=== PATIENT | female | born 1995 | race Caucasian/White ===

== ENCOUNTER → 2017-08-16 | Outpatient (REF) | payer OTHER, BC | LOC: M LAB REF 18:40 | DX: Z12.4 Encounter for screening for malignant neoplasm of cervix (principal) ==

== ENCOUNTER 2018-02-06 17:18 | Inpatient (IN) | payer BC, OTHER ==
[2018-02-06 18:58] LABS: HEMATOCRIT 41.9 % (36.0-47.0); HEMOGLOBIN 14.2 g/dl (12.0-15.5); MEAN CORPUSCULAR HEMOGLOBIN 29.7 pg (27.0-33.0); MEAN CORPUSCULAR HGB CONC 33.9 g/dl (32.0-36.5); MEAN CORPUSCULAR VOLUME 87.7 fl (80.0-96.0); PLATELET COUNT, AUTOMATED 365 10^3/uL (150-450); RED BLOOD COUNT 4.78 10^6/uL (4.00-5.40); RED CELL DISTRIBUTION WIDTH 11.9 % (11.5-14.5); WHITE BLOOD COUNT 8.2 10^3/uL (4.0-10.0)
[2018-02-06 19:21] LABS: CONTROL LINE HCG INT CTR LINE PRESENT; HCG, SERUM QUALITATIVE NEGATIVE (NEGATIVE)
[2018-02-06 19:31] LABS: AMPHETAMINES LEVEL URINE NEGATIVE (NEGATIVE); BARBITURATES URINE NEGATIVE (NEGATIVE); BENZODIAZEPINES URINE NEGATIVE (NEGATIVE); CANNABINOIDS URINE POSITIVE (NEGATIVE); COCAINE METABOLITE URINE NEGATIVE (NEGATIVE); METHADONE URINE NEGATIVE (NEGATIVE); OPIATES URINE NEGATIVE (NEGATIVE); PHENCYCLIDINE URINE NEGATIVE (NEGATIVE)
[2018-02-06 19:32] LABS: ACETAMINOPHEN LEVEL < 2.0 UG/ML (10.0-30.0); ALBUMIN 4.4 GM/DL (3.2-5.2); ALBUMIN/GLOBULIN RATIO 1.38 (1.00-1.93); ALKALINE PHOSPHATASE 41 U/L (45-117); ALT/SGPT 12 U/L (12-78); ANION GAP 8 MEQ/L (8-16); AST/SGOT 8 U/L (7-37); BILIRUBIN,DIRECT 0.2 MG/DL (0.0-0.2); BILIRUBIN,TOTAL 1.1 MG/DL (0.2-1.0); BLOOD UREA NITROGEN 12 MG/DL (7-18); CALCIUM LEVEL 9.4 MG/DL (8.5-10.1); CARBON DIOXIDE LEVEL 27 MEQ/L (21-32); CHLORIDE LEVEL 106 MEQ/L (98-107); CREATININE FOR GFR 0.87 MG/DL (0.55-1.30); ETHYL ALCOHOL (ETHANOL) 0.003 % (0.000-0.010); GLOMERULAR FILTRATION RATE > 60.0 (>60); GLUCOSE, FASTING 96 MG/DL (70-100); POTASSIUM SERUM 3.9 MEQ/L (3.5-5.1); SALICYLATE LEVEL < 1.7 MG/DL (5.0-30.0); SODIUM LEVEL 141 MEQ/L (136-145); TOTAL PROTEIN 7.6 GM/DL (6.4-8.2)
[2018-02-07] MEDS ORDERED: MOM 30ML SUSPENSION UDC PO (14:00)
[2018-02-07] MEDS ORDERED: traZODone 50 MG TAB PO (14:00)
[2018-02-07] MEDS ORDERED: MAALOX 30 ML SUSP *UDC PO (14:00)
[2018-02-07] MEDS ORDERED: ACETAMINOPHEN TAB 650MG DOSE (2X325MG) PO (14:00)
[2018-02-08] MEDS: ESCITALOPRAM OXALATE 5MG TABLET (LEXAPRO) PO (12:30)
[2018-02-08 12:45] LABS: KETONE, URINE AUTO RFX TRACE mg/dL (NEGATIVE); MUCUS, URINE RFX LARGE (NEGATIVE); NITRITE, URINE AUTO RFX NEGATIVE (NEGATIVE); RBC, URINE AUTO RFX 4 /HPF (0-3); SPECIFIC GRAVITY UR AUTO RFX 1.027 (1.002-1.035); SQUAM EPITHELIAL CELL UR AURFX 4 /HPF (0-6); WBC, URINE AUTO RFX 3 /HPF (0-3)
[2018-02-08 12:46] LABS: LEUKOCYTE ESTERASE UR AUTO RFX TRACE (NEGATIVE)
[2018-02-08] MEDS ORDERED: ONDANSETRON 4 MG TAB (S0181) PO (14:45)
[2018-02-08] MEDS: hydrOXYzine 25 MG TAB PO (15:22)
[2018-02-08] MEDS: QUEtiapine FUMARATE 25 MG TAB PO (21:00)
[2018-02-09] MEDS: hydrOXYzine 25 MG TAB PO (08:01)
[2018-02-09] MEDS: ESCITALOPRAM OXALATE 5MG TABLET (LEXAPRO) PO ×2 (09:00→17:52)
[2018-02-09] MEDS: PILL CRUSHER/CUTTER 1 EACH XX (17:52)
[2018-02-10] MEDS: hydrOXYzine 25 MG TAB PO ×2 (07:04→20:28)
[2018-02-10] MEDS: ESCITALOPRAM OXALATE 5MG TABLET (LEXAPRO) PO (18:04)
[2018-02-11] MEDS: hydrOXYzine 25 MG TAB PO (08:47)
== END 2018-02-11 12:45 | disposition home or self-care (01) | DRG 754 ==
LOC: M ED INP 02-07 13:53 → M ED 17:18 → M PSY 02-07 15:50
PROVIDERS: Psychiatry & Neurology Psychiatry
DX: F32.9 Major depressive disorder, single episode, unspecified (principal); F31.9 Bipolar disorder, unspecified; F41.1 Generalized anxiety disorder; F42.9 Obsessive-compulsive disorder, unspecified

== ENCOUNTER → 2018-06-09 | Outpatient (CLI) | payer BC, OTHER ==
[~2018-06-09] MED LIST: HYDR-3363 PO; LEXA5TAB13 PO
[2018-06-09 09:48] LABS: HCG, SERUM QUANTITATIVE < 1.0 MIU/ML
[2018-06-09 09:54] LABS: ESTRADIOL 53.8 PG/ML; FOLLICLE STIMULATING HORMONE 7.2 mIU/mL
--- NOTE | 2018-06-09 09:59 | REP ---
Transvaginal pelvic sonography: History: Infertility study. Findings: Uterine dimensions are normal at 8.2 x 4.4 x 6.1 cm. Endometrial stripe is 0.6 cm thick and centrally placed. No focal uterine mass is seen. There is a trace of fluid in the cul-de-sac. A normal right ovary seen measuring 3.2 x 1.7 x 1.6 cm. There are no follicles in the right ovary measuring greater than a centimeter. There are 14 follicles ranging in size from 0.2-0.9 cm. The left ovary measures 1.1 x 0.8 x 1.2 cm. There are no follicles measuring greater than a centimeter in the left ovary. There are 12 follicles ranging in size from 0.1-0.3 cm. Impression: Ovarian follicle study as above. Electronically Signed by Chase Powell MD 06/09/2018 09:50 A
== END ==
LOC: M LAB 08:43
PROVIDERS: ATTEND Obstetrics & Gynecology Reproductive Endocrinology
DX: Z87.42 Personal history of other diseases of the female genital tract (principal)

== ENCOUNTER → 2018-06-20 | Outpatient (CLI) | payer BC, OTHER ==
--- NOTE | 2018-06-20 08:47 | REP ---
Transvaginal pelvic sonography: History: Ovarian follicle study. Findings: Transvaginal pelvic sonography demonstrates a normal size uterus with dimensions of 9.0 x 4.0 x 6.6 cm per endometrial stripe is 1.2 cm thick. No free fluid is seen. No focal uterine mass is seen Overall dimensions of the right ovary today are 3.6 x 1.6 x 1.9 cm. There are no follicles measuring greater than a centimeter in the right ovary. There are 14 follicles in the right ovary ranging in size from 0.14-0.82 cm. The left ovary has overall dimensions of 2.0 x 1.6 x 1.6 cm. It contains no follicles measuring over a centimeter. There are 12 follicles ranging in size from 0.16 cm to 0.48 cm. Impression: Ovarian follicle study as above. Electronically Signed by Chase Powell MD 06/20/2018 08:38 A
[2018-06-20 09:20] LABS: ESTRADIOL 806.3 PG/ML
[2018-06-20 15:38] LABS: PROGESTERONE 1.34 NG/ML
== END ==
LOC: M RAD 07:36
PROVIDERS: ATTEND Obstetrics & Gynecology Reproductive Endocrinology
DX: N97.9 Female infertility, unspecified (principal)

== ENCOUNTER → 2018-07-06 | Outpatient (CLI) | payer BC, OTHER | LOC: M LAB 07:34 | PROVIDERS: ATTEND Obstetrics & Gynecology Reproductive Endocrinology | DX: Z32.00 Encounter for pregnancy test, result unknown (principal); Z3A.00 Weeks of gestation of pregnancy not specified ==

== ENCOUNTER → 2018-07-11 | Outpatient (CLI) | payer BC, OTHER ==
[2018-07-11 13:41] LABS: HCG, SERUM QUANTITATIVE < 1.0 MIU/ML
[2018-07-11 13:46] LABS: ESTRADIOL 61.3 PG/ML; FOLLICLE STIMULATING HORMONE 7.7 mIU/mL
--- NOTE | 2018-07-11 14:09 | REP ---
Transvaginal pelvic sonography: History: Infertility study. Findings: Uterine I mentions are normal at 10.5 x 4.3 x 6.3 cm. Endometrial stripe is 0.5 cm thick. No focal uterine mass is seen. Endometrium appears somewhat thicker in the cervix. No free fluid is seen. The right ovary measures 2.6 x 1.5 x 1.6 cm. There are no follicles over a centimeter in the right ovary. There are three follicles ranging in size and 0.3-0.8 cm in the right ovary. The left ovary has dimensions of 1.5 x 0.9 x 1.4 cm. There are no follicles in the left ovary measuring over a centimeter. There are three follicles ranging in size from 0.2-0.4 cm in the left ovary. Impression: Normal pelvic sonography. Ovarian follicles as above. Electronically Signed by Chase Powell MD 07/11/2018 02:00 P
== END ==
LOC: M RAD 12:46 → M LAB 12:46
PROVIDERS: ATTEND Obstetrics & Gynecology Reproductive Endocrinology
DX: N97.9 Female infertility, unspecified (principal)

== ENCOUNTER → 2018-07-16 | Outpatient (REF) | payer BC, OTHER | LOC: M LAB REF 19:12 | PROVIDERS: ATTEND Physician Assistant Medical | DX: N39.0 Urinary tract infection, site not specified (principal) ==

== ENCOUNTER → 2018-07-18 | Outpatient (CLI) | payer BC, OTHER ==
--- NOTE | 2018-07-18 09:47 | REP ---
TRANSVAGINAL PELVIC ULTRASOUND FOLLICLE STUDY: Transvaginal pelvic ultrasound was performed. The uterus measures 9.1 x 4.5 x 6.5 cm. Trace free fluid is seen in the cul-de sac. Nabothian cysts are seen in the region of the cervix. Right ovary measure 3.0 x 1.6 x 2.3 cm and left ovary 2.1 x 1.5 x 1.9 cm, with no torsion, blood flow is seen each ovary with duplex Doppler evaluation. In the right ovary there are 7 subcentimeter follicles and in the left ovary there are four subcentimeter follicles. No dominant follicles are seen in either ovary greater than 1 cm in diameter. Electronically Signed by Bismark Power MD 07/18/2018 06:40 P
[2018-07-18 10:08] LABS: ESTRADIOL 719.9 PG/ML; LUTEINIZING HORMONE 14.6 mIU/mL
[2018-07-18 14:03] LABS: PROGESTERONE 0.34 NG/ML
== END ==
LOC: M RAD 07:59
PROVIDERS: ATTEND Obstetrics & Gynecology Reproductive Endocrinology
DX: N97.9 Female infertility, unspecified (principal)

== ENCOUNTER → 2018-07-20 | Outpatient (CLI) | payer BC, OTHER ==
[2018-07-20 09:26] LABS: ESTRADIOL 871.2 PG/ML; LUTEINIZING HORMONE 9.9 mIU/mL; PROGESTERONE 0.28 NG/ML
--- NOTE | 2018-07-20 11:52 | REP ---
TRANSVAGINAL PELVIC ULTRASOUND, FOLLICLE STUDY: Transvaginal pelvic ultrasound performed. Uterus measures 9.8 x 4.8 x 6.9 cm. Endometrial thickness is 15 mm with a trilaminar appearance. There is a tiny amount of fluid in the cervix. Right ovary measures 3.4 x 1.5 x 1.8 cm. A dominant follicle measures 10 x 7 mm. Several other follicles are less than 1 cm in diameter. Left ovary measures 4.9 x 2.5 x 3.6 cm. Four dominant follicles are visualized over 1 cm in diameter, the two largest measure 22 x 17 and 29 x 19 mm. Several other subcentimeter follicles are seen in the left ovary. Electronically Signed by Bismark Power MD 07/21/2018 10:51 A
== END ==
LOC: M RAD 07:27
PROVIDERS: ATTEND Obstetrics & Gynecology Reproductive Endocrinology
DX: N97.9 Female infertility, unspecified (principal)

== ENCOUNTER → 2018-08-05 | Outpatient (CLI) | payer BC, OTHER | LOC: M LAB 07:18 | PROVIDERS: ATTEND Obstetrics & Gynecology Reproductive Endocrinology | DX: Z32.00 Encounter for pregnancy test, result unknown (principal); Z3A.00 Weeks of gestation of pregnancy not specified ==

== ENCOUNTER → 2018-08-08 | Outpatient (CLI) | payer BC, OTHER ==
--- NOTE | 2018-08-08 10:06 | REP ---
TRANSVAGINAL PELVIC ULTRASOUND FOLLICLE STUDY: Real-time sonographic evaluation of the pelvis performed using transvaginal technique. Uterus measures 9.6 x 4.3 x 6.2 cm. Endometrial thickness is 8 mm. There is no endometrial fluid collection. Left ovarian cyst measures 4.0 x 2.4 x 2.6 cm. Left ovary measures 7.0 x 3.0 x 3.4 cm. Multiple subcentimeter follicles are also seen in the left ovary. Right ovary measures 1.9 x 1.4 x 1.4 cm with multiple subcentimeter follicles. Electronically Signed by Bismark Power MD 08/09/2018 11:28 A
[2018-08-08 10:39] LABS: HCG, SERUM QUANTITATIVE < 1.0 MIU/ML
[2018-08-08 10:48] LABS: ESTRADIOL 59.9 PG/ML; FOLLICLE STIMULATING HORMONE 6.3 mIU/mL
== END ==
LOC: M RAD 09:08
PROVIDERS: ATTEND Obstetrics & Gynecology Reproductive Endocrinology
DX: N97.9 Female infertility, unspecified (principal)

== ENCOUNTER → 2018-09-09 | Outpatient (CLI) | payer BC, OTHER ==
--- NOTE | 2018-09-09 09:35 | REP ---
TRANSVAGINAL PELVIC ULTRASOUND FOLLICLE STUDY: Real-time sonographic evaluation of the pelvis performed utilizing transvaginal technique. The uterus measures 8.0 x 4.2 x 6.0 cm. Endometrial thickness is 6 mm. Trace free fluid is seen in the cul-de-sac likely physiologic in nature. Transabdominal scanning also was performed as the left ovary could not be visualized with a transvaginal probe as it is superiorly located in the pelvis. Right ovary measures 2.9 x 1.5 x 2.1 cm with multiple subcentimeter follicles measuring up to 6 mm. Left ovary measures 2.6 x 1.4 x 1.8 cm. There are several subcentimeter follicles measuring up to 7 mm. No dominant follicle is seen in either ovary measuring 10 mm or greater. Electronically Signed by Bismark Power MD 09/10/2018 10:41 A
[2018-09-09 10:10] LABS: HCG, SERUM QUANTITATIVE < 1.0 MIU/ML
[2018-09-09 10:54] LABS: ESTRADIOL 36.1 PG/ML
[2018-09-09 10:55] LABS: FOLLICLE STIMULATING HORMONE 6.8 mIU/mL
== END ==
LOC: M RAD 08:20
PROVIDERS: ATTEND Obstetrics & Gynecology Reproductive Endocrinology
DX: N97.9 Female infertility, unspecified (principal)

== ENCOUNTER → 2018-10-06 | Outpatient (CLI) | payer BC, OTHER | LOC: M LAB 07:30 | PROVIDERS: ATTEND Obstetrics & Gynecology Reproductive Endocrinology | DX: Z32.00 Encounter for pregnancy test, result unknown (principal) ==

== ENCOUNTER → 2018-11-07 | Outpatient (CLI) | payer BC, OTHER ==
--- NOTE | 2018-11-07 12:19 | REP ---
Transvaginal pelvic sonography: Follicle exam: Infertility. Findings: Uterine dimensions are 9.8 x 4.7 x 6.9 cm. Endometrial echo 0.3 cm thick. No focal uterine mass is seen. No free fluid is noted. The left ovary is only seen transabdominally. Its dimensions are 3.5 x 1.1 x 1.9 cm. There are no follicles in the left ovary measuring more than a centimeter. There are two follicles visible in the left ovary ranging in size from 0.7-0.8 cm.. Ovarian volume is calculated at 3.8 ml. The right ovary measures 3.8 x 1.7 x 2.3 cm. Calculated volume 7.8 ml. There are no follicles over a centimeter in the right ovary. There are four follicles ranging in size from 0.3-0.7 cm. Doppler flow is normal both ovaries. Resistive indices are 0.53 and 0.60 on the right and left respectively. Impression: Ovarian follicle study as above. No abnormality noted. Electronically Signed by Chase Powell MD 11/07/2018 08:05 A
== END ==
LOC: M RAD 07:17
PROVIDERS: ATTEND Obstetrics & Gynecology Reproductive Endocrinology
DX: N97.9 Female infertility, unspecified (principal)

== ENCOUNTER → 2018-11-09 | Outpatient (CLI) | payer BC, OTHER ==
--- NOTE | 2018-11-09 08:49 | REP ---
TRANSVAGINAL PELVIC ULTRASOUND, FOLLICLE STUDY: Real-time sonographic evaluation of the pelvis performed utilizing transvaginal probe. The size of the uterus is 9.3 x 5.0 x 7.0 cm. Endometrial thickness is 7 mm. The right ovary measures 4.3 x 2.4 x 2.9 cm. Two dominant follicles are seen measuring 11 x 9 and 11 x 8 mm. Multiple other subcentimeter follicles are seen. Left ovary measures 2.9 x 1.7 x 2.3 cm. Two dominant follicles are seen measuring 19 x 10 mm and 11 x 10 mm. Multiple other subcentimeter follicles are seen in the left ovary. Electronically Signed by Bismark Power MD 11/10/2018 08:02 A
== END ==
LOC: M RAD 07:35
PROVIDERS: ATTEND Obstetrics & Gynecology Reproductive Endocrinology
DX: N97.9 Female infertility, unspecified (principal)

== ENCOUNTER → 2018-11-11 | Outpatient (CLI) | payer BC, OTHER ==
--- NOTE | 2018-11-11 07:58 | REP ---
Pelvic sonography: History: Ovarian follicle exam. Diagnosis N 97.9. Findings: Uterine dimensions are 9.5 x 4.9 x 6.2 cm. Endometrial stripe is 1.2 cm thick. No focal uterine mass is seen. No free fluid is noted. The right ovaries dimensions today are 4.8 x 2.5 x 2.5 cm. There are six follicles in the right ovary greater than a centimeter in diameter measured as follows: 1.0 x 0.8, 1.3 x 1.0, 1.1 x 0.9, 1.0 x 0.8, 1.4 x 0.7, and 1.4 x 1.0 cm. In addition, the right ovary contains nine follicles measuring between 0.5 and 0.9 cm. The left ovaries overall dimensions are 7.8 x 2.0 x 2.4 cm. It is high in the pelvis and only visualized transabdominally. There are five follicles measuring over a centimeter in the left ovary as follows: 1.3 x 0.8, 1.5 x 1.1, 1.2 x 0.8, 1.6 x 1.1, and 1.5 x 1.0 cm. In addition, the left ovary contains five follicles measuring between 0.4 and 0.8 cm Impression: Ovarian follicle study as above. Electronically Signed by Chase Powell MD 11/11/2018 07:50 A
== END ==
LOC: M RAD 06:41
PROVIDERS: ATTEND Obstetrics & Gynecology Reproductive Endocrinology
DX: N97.9 Female infertility, unspecified (principal)

== ENCOUNTER → 2018-11-16 | Outpatient (CLI) | payer BC, OTHER | LOC: M LAB 07:18 | PROVIDERS: ATTEND Obstetrics & Gynecology Reproductive Endocrinology | DX: N97.9 Female infertility, unspecified (principal) ==

== ENCOUNTER → 2018-11-24 | Outpatient (CLI) | payer BC, OTHER | LOC: M LAB 07:25 | PROVIDERS: ATTEND Obstetrics & Gynecology Reproductive Endocrinology | DX: Z32.00 Encounter for pregnancy test, result unknown (principal) ==

== ENCOUNTER → 2018-12-02 | Outpatient (CLI) | payer BC, OTHER | LOC: M LAB 07:32 | PROVIDERS: ATTEND Obstetrics & Gynecology Reproductive Endocrinology | DX: Z32.00 Encounter for pregnancy test, result unknown (principal) ==

== ENCOUNTER → 2018-12-05 | Outpatient (CLI) | payer BC, OTHER ==
[2018-12-05 08:20] LABS: THYROID STIMULATING HORMONE 2.55 uIU/ML (0.358-3.740)
== END ==
LOC: M LAB 07:18
PROVIDERS: ATTEND Obstetrics & Gynecology Reproductive Endocrinology
DX: Z32.00 Encounter for pregnancy test, result unknown (principal)

== ENCOUNTER → 2018-12-07 | Outpatient (CLI) | payer BC, OTHER ==
[2018-12-07 07:35] LABS: HEMATOCRIT 36.9 % (36.0-47.0); HEMOGLOBIN 12.6 g/dl (12.0-15.5); MEAN CORPUSCULAR HEMOGLOBIN 29.8 pg (27.0-33.0); MEAN CORPUSCULAR HGB CONC 34.1 g/dl (32.0-36.5); MEAN CORPUSCULAR VOLUME 87.2 fl (80.0-96.0); PLATELET COUNT, AUTOMATED 328 10^3/uL (150-450); RED BLOOD COUNT 4.23 10^6/uL (4.00-5.40); WHITE BLOOD COUNT 5.3 10^3/uL (4.0-10.0)
[2018-12-07 08:01] LABS: ALBUMIN 3.7 GM/DL (3.2-5.2); ALT/SGPT 15 U/L (12-78); BILIRUBIN,TOTAL 0.7 MG/DL (0.2-1.0); BLOOD UREA NITROGEN 11 MG/DL (7-18); CALCIUM LEVEL 8.9 MG/DL (8.5-10.1); CARBON DIOXIDE LEVEL 26 MEQ/L (21-32); CHLORIDE LEVEL 105 MEQ/L (98-107); CREATININE FOR GFR 0.77 MG/DL (0.55-1.30); GLOMERULAR FILTRATION RATE > 60.0 (>60); GLUCOSE, FASTING 97 MG/DL (70-100); HCG, SERUM QUANTITATIVE 126 MIU/ML; POTASSIUM SERUM 3.8 MEQ/L (3.5-5.1); SODIUM LEVEL 139 MEQ/L (136-145); TOTAL PROTEIN 7.2 GM/DL (6.4-8.2)
== END ==
LOC: M LAB 07:16
PROVIDERS: ATTEND Obstetrics & Gynecology Reproductive Endocrinology
DX: Z32.00 Encounter for pregnancy test, result unknown (principal)

== ENCOUNTER → 2018-12-09 | Outpatient (CLI) | payer BC, OTHER | LOC: M LAB 07:38 | PROVIDERS: ATTEND Obstetrics & Gynecology Reproductive Endocrinology | DX: N97.9 Female infertility, unspecified (principal) ==

== ENCOUNTER → 2018-12-12 | Outpatient (CLI) | payer BC, OTHER | LOC: M LAB 08:13 | PROVIDERS: ATTEND Obstetrics & Gynecology Reproductive Endocrinology | DX: N97.9 Female infertility, unspecified (principal) ==

== ENCOUNTER → 2018-12-16 | Outpatient (CLI) | payer BC, OTHER | LOC: M LAB 07:43 | PROVIDERS: ATTEND Obstetrics & Gynecology Reproductive Endocrinology | DX: N97.9 Female infertility, unspecified (principal) ==

== ENCOUNTER → 2019-02-09 | Outpatient (CLI) | payer OTHER | LOC: M LAB 07:34 | PROVIDERS: ATTEND Obstetrics & Gynecology Reproductive Endocrinology | DX: N97.9 Female infertility, unspecified (principal) ==

== ENCOUNTER → 2019-03-09 | Outpatient (CLI) | payer OTHER ==
[2019-03-09 11:28] LABS: ESTRADIOL 20.6 PG/ML; PROGESTERONE 0.32 NG/ML
== END ==
LOC: M LAB 07:47
PROVIDERS: ATTEND Obstetrics & Gynecology Reproductive Endocrinology
DX: N97.9 Female infertility, unspecified (principal)

== ENCOUNTER → 2019-04-10 | Outpatient (CLI) | payer OTHER | LOC: M LAB 07:28 | PROVIDERS: ATTEND Obstetrics & Gynecology Reproductive Endocrinology | DX: Z32.00 Encounter for pregnancy test, result unknown (principal) ==

== ENCOUNTER → 2019-05-05 | Outpatient (CLI) | payer OTHER ==
[2019-05-05 09:57] LABS: BASO % 0.8 % (0.0-1.0); EOS # 0.1 10^3/uL (0.0-0.5); EOS % 2.3 % (0.0-3.0); HEMATOCRIT 37.7 % (36.0-47.0); HEMOGLOBIN 12.6 g/dl (12.0-15.5); MEAN CORPUSCULAR HEMOGLOBIN 29.2 pg (27.0-33.0); MEAN CORPUSCULAR HGB CONC 33.4 g/dl (32.0-36.5); MEAN CORPUSCULAR VOLUME 87.3 fl (80.0-96.0); MONO # 0.4 10^3/uL (0.0-0.8); MONO % 8.5 % (0.0-5.0); NEUTROPHILS # 2.3 10^3/uL (1.5-8.5); NEUTROPHILS % 47.2 % (36.0-66.0); PLATELET COUNT, AUTOMATED 314 10^3/uL (150-450); RED BLOOD COUNT 4.32 10^6/uL (4.00-5.40); WHITE BLOOD COUNT 4.9 10^3/uL (4.0-10.0)
[2019-05-05 10:26] LABS: ALBUMIN 3.9 GM/DL (3.2-5.2); ALT/SGPT 30 U/L (12-78); BILIRUBIN,TOTAL 0.4 MG/DL (0.2-1.0); BLOOD UREA NITROGEN 10 MG/DL (7-18); CALCIUM LEVEL 9.2 MG/DL (8.5-10.1); CARBON DIOXIDE LEVEL 29 MEQ/L (21-32); CHLORIDE LEVEL 107 MEQ/L (98-107); CREATININE FOR GFR 0.69 MG/DL (0.55-1.30); FERRITIN 23 NG/ML (8-252); GLOMERULAR FILTRATION RATE > 60.0 (>60); GLUCOSE, FASTING 80 MG/DL (70-100); IRON (FE) 59 UG/DL (50-170); MAGNESIUM LEVEL 2.3 MG/DL (1.8-2.4); PERCENT SATURATION 16.3 % (13.2-45.0); PHOSPHORUS LEVEL 3.4 MG/DL (2.5-4.9); POTASSIUM SERUM 3.9 MEQ/L (3.5-5.1); SODIUM LEVEL 140 MEQ/L (136-145); TOTAL IRON BINDING CAPACITY 363 UG/DL (250-450); TOTAL PROTEIN 7.2 GM/DL (6.4-8.2)
[2019-05-05 10:40] LABS: THYROGLOBULIN ANTIBODY 25.7 U/ML (<60.0); THYROID PEROXIDASE ANTIBODY < 28.0 U/ML (<60.0); TOTAL 25(OH) VITAMIN D 27.3 NG/ML (30.0-100.0)
[2019-05-05 10:41] LABS: VITAMIN B12 LEVEL 478 PG/ML (247-911)
[2019-05-05 11:01] LABS: FOLATE > 24.0 NG/ML (>5.4)
[2019-05-25 15:04] LABS: VITAMIN B2 (RIBOFLAVIN) 195 ug/L
[2019-05-25 15:09] LABS: G6PD3 4.32 x10E6/uL
[2019-05-25 15:11] LABS: Lyme Disease IgG/IgM Antibodie 0.94 High ISR
[2019-05-25 15:15] LABS: Lyme Disease IgG Ab 93 kDa Ban Absent
[2019-05-25 15:16] LABS: Lyme Disease IgG Ab 18 kDa Ban Absent; Lyme Disease IgG Ab 23 kDa Ban Absent; Lyme Disease IgG Ab 28 kDa Ban Absent; Lyme Disease IgG Ab 30 kDa Ban Absent; Lyme Disease IgG Ab 39 kDa Ban Absent; Lyme Disease IgG Ab 41 kDa Ban Absent; Lyme Disease IgG Ab 45 kDa Ban Absent; Lyme Disease IgG Ab 58 kDa Ban Absent; Lyme Disease IgG Ab 66 kDa Ban Absent
[2019-05-25 15:17] LABS: Lyme Disease IgG West Blot Int Negative; Lyme Disease IgM Ab 41 kDa Ban Absent
[2019-05-25 15:18] LABS: Lyme Disease IgM Ab 23 kDa Ban Present Abnormal; Lyme Disease IgM Ab 39 kDa Ban Absent
[2019-05-25 15:27] LABS: Lyme Disease IgM West Blot Int Negative
[2019-05-25 15:33] LABS: Lyme Disease IgM Ab Quantitati <0.80 index
[2019-05-25 15:35] LABS: B. HENSELAE IgM (CAT SCRATCH) Negative; B. QUINTANA IgM (CAT SCRATCH) Negative
[2019-05-25 15:36] LABS: B. QUINTANA IgG (CAT SCRATCH) Negative
[2019-05-25 15:37] LABS: B. HENSELAE IgG (CAT SCRATCH) Negative
[2019-05-25 15:38] LABS: EBV VIRAL CAPSID AG IgM 102.0 High
[2019-05-25 15:39] LABS: EBV VIRAL CAPSID AG IgG 98.4 High
[2019-05-25 15:40] LABS: EBV AB TO NUCLEAR ANTIGEN 495.0 High
[2019-05-25 15:47] LABS: MYCOPLASMA PNEUMONIAE IgG 180 High
[2019-05-25 15:49] LABS: MYCOPLASMA PNEUMONIAE IgM <770
[2019-05-25 15:50] LABS: VITAMIN B6,PYRIDOXAL PHOSPHATE 8.1 ug/L
[2019-05-25 15:52] LABS: E CHAFFEENSIS IgG TITER Negative
[2019-05-25 15:53] LABS: E CHAFFEENSIS IgM TITER Negative; HUMAN GRANULCYTIC EHRLIC IgG Negative
[2019-05-25 15:54] LABS: HUMAN GRANULCYTIC EHRLIC IgM Negative
[2019-05-25 15:56] LABS: HERPES HUMAN VIRUS #6 IgG HVG 2.70 High
[2019-05-25 15:57] LABS: HERPES HUMAN VIRUS #6 IgM HVG <1:10
[2019-05-25 15:59] LABS: TOXOPLASMA IgG ABY <3.0
[2019-05-25 16:03] LABS: HSV TYPE I IgG SPECIFIC 1.61 High; HSV TYPE II IgG SPECIFIC <0.91
[2019-05-25 16:07] LABS: BABESIA MICROTI PCR Negative
[2019-05-25 16:08] LABS: WEST NILE VIRUS ANTIBODY IgM Negative (NEGATIVE)
[2019-05-25 16:09] LABS: WEST NILE VIRUS ANTIBODY IgG Negative (NEGATIVE)
[2019-05-25 16:10] LABS: HSV TYPE I IgM AB <1:10
[2019-05-25 16:11] LABS: HSV TYPE II IgM ABY <1:10
[2019-05-25 16:12] LABS: CYTOMEGALOVIRUS IgG ANTIBODY <0.60
[2019-05-25 16:14] LABS: CYTOMEGALOVIRUS IgM ANTIBODY <30.0
[2019-05-25 16:16] LABS: COXSACKIE TYPE A-7 IgM Negative
[2019-05-25 16:17] LABS: COXSACKIE TYPE A-16 IgM Negative; COXSACKIE TYPE A-24 IgM Negative; COXSACKIE TYPE A-9 IgM Negative
[2019-05-25 16:18] LABS: COXSACKIE TYPE B1 Negative; COXSACKIE TYPE B2 Negative; COXSACKIE TYPE B3 Negative; COXSACKIE TYPE B4 Negative; COXSACKIE TYPE B5 Negative; COXSACKIE TYPE B6 Negative
[2019-05-25 16:21] LABS: RMSFIGG1 Negative
[2019-05-25 16:22] LABS: ROCKY MTN SPOTTED FEVER IgM 1.17 High
[2019-05-25 16:23] LABS: CHLAMYDIA PNEUMONIAE IgG <1:16
[2019-05-25 16:24] LABS: CHLAMYDIA PNEUMONIAE IgM <1:10
[2019-05-25 16:27] LABS: NICOTINAMIDE 28.6 ng/mL
[2019-05-25 16:28] LABS: NICOTINIC ACID <5.0 ng/mL
== END ==
LOC: M LAB 07:53
PROVIDERS: ATTEND Physician Assistant
DX: E55.9 Vitamin D deficiency, unspecified (principal); E03.9 Hypothyroidism, unspecified; D50.8 Other iron deficiency anemias; R68.89 Other general symptoms and signs; I10 Essential (primary) hypertension; D55.0 Anemia due to glucose-6-phosphate dehydrogenase [G6PD] deficiency; Z11.59 Encounter for screening for other viral diseases

== ENCOUNTER → 2019-07-17 | Outpatient (CLI) | payer OTHER ==
[2019-07-17 13:52] LABS: BASO % 0.9 % (0.0-1.0); EOS # 0.1 10^3/uL (0.0-0.5); EOS % 2.7 % (0.0-3.0); HEMATOCRIT 36.1 % (36.0-47.0); HEMOGLOBIN 12.2 g/dl (12.0-15.5); LYMPH # 2.1 10^3/uL (1.5-5.0); LYMPH % 48.1 % (24.0-44.0); MEAN CORPUSCULAR HGB CONC 33.8 g/dl (32.0-36.5); MEAN CORPUSCULAR VOLUME 88.7 fl (80.0-96.0); MONO # 0.5 10^3/uL (0.0-0.8); MONO % 10.6 % (0.0-5.0); NEUTROPHILS # 1.7 10^3/uL (1.5-8.5); NEUTROPHILS % 37.5 % (36.0-66.0); PLATELET COUNT, AUTOMATED 251 10^3/uL (150-450); RED BLOOD COUNT 4.07 10^6/uL (4.00-5.40); WHITE BLOOD COUNT 4.5 10^3/uL (4.0-10.0)
[2019-07-17 14:27] LABS: ALBUMIN 3.5 GM/DL (3.2-5.2); ALT/SGPT 29 U/L (12-78); BILIRUBIN,TOTAL 0.3 MG/DL (0.2-1.0); BLOOD UREA NITROGEN 4 MG/DL (7-18); CALCIUM LEVEL 8.6 MG/DL (8.5-10.1); CARBON DIOXIDE LEVEL 29 MEQ/L (21-32); CHLORIDE LEVEL 106 MEQ/L (98-107); CREATININE FOR GFR 0.51 MG/DL (0.55-1.30); GLOMERULAR FILTRATION RATE > 60.0 (>60); GLUCOSE, FASTING 89 MG/DL (70-100); POTASSIUM SERUM 3.7 MEQ/L (3.5-5.1); SODIUM LEVEL 140 MEQ/L (136-145); TOTAL PROTEIN 6.9 GM/DL (6.4-8.2)
[2019-07-17 14:34] LABS: TOTAL 25(OH) VITAMIN D 62.2 NG/ML (30.0-100.0)
== END ==
LOC: M LAB 12:21
PROVIDERS: ATTEND Physician Assistant
DX: R68.89 Other general symptoms and signs (principal); E55.9 Vitamin D deficiency, unspecified

== ENCOUNTER → 2019-07-24 | Outpatient (CLI) | payer OTHER ==
[2019-07-24 12:38] LABS: ALBUMIN 3.3 GM/DL (3.2-5.2); ALT/SGPT 39 U/L (12-78); BILIRUBIN,TOTAL 0.2 MG/DL (0.2-1.0); BLOOD UREA NITROGEN 6 MG/DL (7-18); CALCIUM LEVEL 8.6 MG/DL (8.5-10.1); CARBON DIOXIDE LEVEL 29 MEQ/L (21-32); CHLORIDE LEVEL 106 MEQ/L (98-107); CREATININE FOR GFR 0.52 MG/DL (0.55-1.30); GLOMERULAR FILTRATION RATE > 60.0 (>60); GLUCOSE, FASTING 96 MG/DL (70-100); POTASSIUM SERUM 3.9 MEQ/L (3.5-5.1); SODIUM LEVEL 140 MEQ/L (136-145); TOTAL PROTEIN 6.5 GM/DL (6.4-8.2)
== END ==
LOC: M LAB 11:40
PROVIDERS: ATTEND Physician Assistant
DX: I10 Essential (primary) hypertension (principal)

== ENCOUNTER 2019-08-31 15:43 | Emergency (ER) | payer OTHER ==
[~2019-08-31] VITALS: Ht 177.8 cm; Wt 69.6 kg
[2019-08-31] MEDS ORDERED: NYST50SS PO (15:55)
[2019-08-31] MEDS ORDERED: LEXA1TAB PO (15:55)
[2019-08-31] MEDS ORDERED: [UNRECOGNIZED DRUG - OTHER] (15:55)
[2019-08-31] MEDS ORDERED: RIFA30CA PO (15:55)
[2019-08-31] MEDS ORDERED: VALA500T5 PO (15:55)
[2019-08-31] MEDS ORDERED: DOXY150C PO (15:55)
[2019-08-31] MEDS ORDERED: [UNRECOGNIZED DRUG - OTHER] (15:55)
[2019-08-31 16:27] LABS: BASO % 0.7 % (0.0-1.0); EOS # 0.1 10^3/uL (0.0-0.5); EOS % 1.1 % (0.0-3.0); HEMATOCRIT 39.7 % (36.0-47.0); HEMOGLOBIN 13.6 g/dl (12.0-15.5); LYMPH # 2.5 10^3/uL (1.5-5.0); LYMPH % 41.5 % (24.0-44.0); MEAN CORPUSCULAR HEMOGLOBIN 30.7 pg (27.0-33.0); MEAN CORPUSCULAR HGB CONC 34.3 g/dl (32.0-36.5); MEAN CORPUSCULAR VOLUME 89.6 fl (80.0-96.0); MONO # 0.5 10^3/uL (0.0-0.8); MONO % 7.9 % (0.0-5.0); NEUTROPHILS % 48.5 % (36.0-66.0); PLATELET COUNT, AUTOMATED 326 10^3/uL (150-450); RED BLOOD COUNT 4.43 10^6/uL (4.00-5.40); WHITE BLOOD COUNT 6.1 10^3/uL (4.0-10.0)
[2019-08-31] MEDS ORDERED: FAMOTIDINE IV BAG 20 MG in IV 1 EA IV ONE (16:30)
[2019-08-31] MEDS ORDERED: NS 1,000 ML IV SCH (16:30)
[2019-08-31] MEDS ORDERED: ONDANSETRON 4MG/2ML VIAL IV ONE (16:30)
[2019-08-31 16:46] LABS: ALBUMIN 4.1 GM/DL (3.2-5.2); BILIRUBIN,DIRECT 0.1 MG/DL (0.0-0.2); BILIRUBIN,TOTAL 0.4 MG/DL (0.2-1.0); TOTAL PROTEIN 7.6 GM/DL (6.4-8.2)
--- NOTE | 2019-08-31 16:56 | REP ---
Clinical: Right lower quadrant pain. Technique: Axial noncontrast images from the lung bases to the pubic symphysis with coronal and sagittal re-formations. Comparison: None. Findings: Lung bases are clear. Liver, spleen, pancreas, gallbladder, bilateral adrenal glands and kidneys are normal. The enteric system is without obstruction or acute inflammatory process. Normal terminal ileum, cecum and appendix are identified in the right lower quadrant. Pelvis demonstrates normal bladder and age-appropriate uterus/adnexa. No pelvic fluid or ascites. No free air. No adenopathy. Abdominal aorta without aneurysm or dissection. Musculoskeletal structures are intact. Impression: No acute abdominopelvic pathology appreciated. Normal right lower quadrant structures including appendix and adnexa. Electronically Signed by Fabián Livingston MD 08/31/2019 04:48 P
[2019-08-31 17:14] LABS: INR 1.13; PROTHROMBIN TIME 14.2 SECONDS (11.8-14.0)
--- NOTE | 2019-08-31 18:23 | REPVR ---
PROCEDURE INFORMATION: Exam: US Nonobstetric Pelvis; Complete Exam date and time: 08/31/2019 5:24 PM Age: 24 years old Clinical indication: Pelvic pain; Additional info: R/O ovarian cyst R TECHNIQUE: Imaging protocol: Transabdominal pelvic nonobstetric ultrasound. Complete exam. Real time ultrasound with image documentation. COMPARISON: Transvaginal NON- US 11/11/2018 6:58 AM FINDINGS: Uterus/cervix: The uterus is normal in size and echogenicity, measuring 8.4 x 5.0 x 6.8 cm. Endometrium is normal in echogenicity, measuring 12 mm in thickness. Right adnexa: Hypoechoic structure without internal color flow is seen in the right ovary measuring 2.6 x 1.9 x 1.7 cm. There may be some faint internal echoes within this, but the appearance of faint internal echoes may be artifactual. No nodularity. The right ovary measures 3.2 x 2.9 x 3.3 cm, with volume of 16 cc. Left adnexa: The left ovary is normal in size and echogenicity, measuring 1.7 x 1.0 x 1.5 cm, with volume of 1.3 cc. Free fluid: No free fluid. Bladder: Bladder is grossly unremarkable. IMPRESSION: 1. 2.6 cm right ovarian cyst. It is difficult to determine whether this is truly a simple cyst as a dominant follicle, or whether there are some faint internal echoes suggestive of a hemorrhagic cyst. No nodularity or internal color flow is observed. No follow-up is necessary for this sonographic finding. Imaging follow-up is only recommended based on clinical findings. Electronically signed by: Citlaly Lopez On 08/31/2019 18:22:58 PM
[2019-08-31] MEDS ORDERED: NORC1TAB7 PO (18:26)
[2019-08-31 18:38] VITALS: BP 103/6
== END 2019-08-31 18:40 | disposition home or self-care (01) ==
LOC: M ED 15:43
DX: N83.291 Other ovarian cyst, right side (principal); Z79.2 Long term (current) use of antibiotics; Z79.899 Other long term (current) drug therapy
CPT/HCPCS: 74176; 76856; 80047; 80076; 81001; 83690; 84702; 85025; 85610; 93976; 96361; 96365; 96375; 99284; J2405

== ENCOUNTER → 2019-09-27 | Outpatient (CLI) | payer OTHER ==
[~2019-09-27] MED LIST changes: +DOXY150C PO; +LEXA1TAB PO; +NORC1TAB7 PO; +NYST50SS PO; +RIFA30CA PO; +VALA500T5 PO; +[UNRECOGNIZED DRUG - OTHER]; +[UNRECOGNIZED DRUG - OTHER]
[2019-10-23 16:13] LABS: BASO % 0.6 % (0.0-1.0); EOS % 0.8 % (0.0-3.0); HEMATOCRIT 39.7 % (36.0-47.0); HEMOGLOBIN 13.3 g/dl (12.0-15.5); LYMPH # 1.9 10^3/uL (1.5-5.0); LYMPH % 35.9 % (24.0-44.0); MEAN CORPUSCULAR HEMOGLOBIN 30.8 pg (27.0-33.0); MEAN CORPUSCULAR HGB CONC 33.5 g/dl (32.0-36.5); MEAN CORPUSCULAR VOLUME 91.9 fl (80.0-96.0); MONO # 0.4 10^3/uL (0.0-0.8); MONO % 7.8 % (0.0-5.0); NEUTROPHILS # 2.9 10^3/uL (1.5-8.5); NEUTROPHILS % 54.5 % (36.0-66.0); PLATELET COUNT, AUTOMATED 319 10^3/uL (150-450); RED BLOOD COUNT 4.32 10^6/uL (4.00-5.40); WHITE BLOOD COUNT 5.2 10^3/uL (4.0-10.0)
[2019-11-05 11:41] LABS: ALBUMIN 4.3 GM/DL (3.2-5.2); ALT/SGPT 17 U/L (12-78); BILIRUBIN,TOTAL 0.5 MG/DL (0.2-1.0); BLOOD UREA NITROGEN 8 MG/DL (7-18); CALCIUM LEVEL 9.5 MG/DL (8.5-10.1); CARBON DIOXIDE LEVEL 30 MEQ/L (21-32); CHLORIDE LEVEL 104 MEQ/L (98-107); CREATININE FOR GFR 0.77 MG/DL (0.55-1.30); FERRITIN 56 NG/ML (8-252); GLOMERULAR FILTRATION RATE > 60.0 (>60); GLUCOSE, FASTING 89 MG/DL (70-100); IRON (FE) 144 UG/DL (50-170); POTASSIUM SERUM 4.1 MEQ/L (3.5-5.1); SODIUM LEVEL 137 MEQ/L (136-145); TOTAL IRON BINDING CAPACITY 277 UG/DL (250-450); TOTAL PROTEIN 7.5 GM/DL (6.4-8.2)
== END ==
LOC: M LAB 12:18
PROVIDERS: ATTEND Physician Assistant
DX: Z13.0 Encounter for screening for diseases of the blood and blood-forming organs and certain disorders involving the immune mechanism (principal); D50.8 Other iron deficiency anemias; I10 Essential (primary) hypertension; R68.89 Other general symptoms and signs; R79.89 Other specified abnormal findings of blood chemistry

== ENCOUNTER → 2020-01-08 | Outpatient (CLI) | payer OTHER | LOC: M LAB 07:13 | PROVIDERS: ATTEND Obstetrics & Gynecology Reproductive Endocrinology | DX: N97.9 Female infertility, unspecified (principal) ==

== ENCOUNTER → 2020-01-10 | Outpatient (CLI) | payer OTHER ==
[2020-01-10 09:12] LABS: THYROID STIMULATING HORMONE 5.38 uIU/ML (0.358-3.740)
== END ==
LOC: M LAB 07:59
PROVIDERS: ATTEND Obstetrics & Gynecology Reproductive Endocrinology
DX: N97.9 Female infertility, unspecified (principal)

== ENCOUNTER → 2020-01-16 | Outpatient (CLI) | payer OTHER ==
[2020-01-16 08:14] LABS: THYROID STIMULATING HORMONE 4.04 uIU/ML (0.358-3.740)
== END ==
LOC: M LAB 06:50
PROVIDERS: ATTEND Obstetrics & Gynecology Reproductive Endocrinology
DX: N97.9 Female infertility, unspecified (principal)

== ENCOUNTER 2020-02-29 21:05 | Emergency (ER) | payer OTHER ==
[~2020-02-29] VITALS: Ht 177.8 cm; Wt 67.1 kg
[2020-02-29 21:06] VITALS: BP 112/52
[2020-02-29] MEDS ORDERED: CEPH500C (21:18)
[2020-02-29] MEDS ORDERED: PRENTAB53 PO (21:18)
== END 2020-02-29 22:14 | disposition home or self-care (01) ==
LOC: M ED 21:05
DX: O26.891 Other specified pregnancy related conditions, first trimester (principal); R30.0 Dysuria; Z3A.11 11 weeks gestation of pregnancy; Z79.899 Other long term (current) drug therapy

== ENCOUNTER → 2020-09-03 | Outpatient (CLI) | payer OTHER ==
[~2020-09-03] VITALS: Ht 177.8 cm; Wt 84.6 kg
[~2020-09-03] MED LIST changes: +CEPH500C; +DHA100CA PO; +LEVO50TA5 PO; +PRENTAB53 PO
[2020-09-03 22:51] VITALS: BP 106/55
--- NOTE | 2020-09-04 00:45 | IPNPDOC ---
Text Note Date of Service The patient was seen on 09/04/20. NOTE Triage Note Bea is a 25yo with SIUP at approx 38wk who presented to L&D triage for CC of painful regular ctx. She notes she has had cramping all day that started yesterday evening. She receives her care in [place] and she was monitored there for 6 hours earlier in the day for hitting her abdomen into her dresser last night. She notes the cramping started after hitting her abdomen but it has increased in intensity since discharge from [place] around 4pm. She had a BPP 8/8 upon discharge and plan was for NST tomorrow. She had cervical check earlier today and notes she was 1cm. Since that time she has had slight vaginal spotting. Good movement. No LOF. Vitals wnl, afebrile Gen: WDWN, resting comfortably in bed Abdomen: soft, gravid, NTTP Extremities: no edema of BLE SCE: 1/thick/high Cat I FHRT with +accels, -decels, mod [place]: no ctx pattern Assessment: Bea is a 25yo with SIUP at approx 38wk with NO evidence of labor. Reassuring assessment. Vitals wnl, benign exam. Plan: -safe for discharge home -follow up tomorrow as scheduled for routine NST in [place] -return precautions discussed MD RUTH Esparza Fishbone, I+O VSYoselin I+O Vital Signs Date Time Temp Pulse Resp B/P (MAP) Pulse Ox O2 Delivery O2 Flow Rate FiO2 09/03/20 22:51 97.1 81 18 106/55 (72) 98 Room Air Diana Roberson MD Sep 04, 2020 00:45
== END ==
LOC: M LDO 22:22
PROVIDERS: ATTEND Obstetrics & Gynecology
DX: O26.853 Spotting complicating pregnancy, third trimester (principal); Z3A.38 38 weeks gestation of pregnancy; O26.893 Other specified pregnancy related conditions, third trimester; R25.2 Cramp and spasm
CPT/HCPCS: 59025; G0378; G0463

== ENCOUNTER 2020-09-12 12:21 | Inpatient (IN) | payer OTHER ==
[~2020-09-12] VITALS: Ht 177.8 cm; Wt 76.4 kg
[2020-09-12] MEDS ORDERED: NS 1,000 ML IV ONE ×3 (12:35→17:00)
[2020-09-12] MEDS ORDERED: ONDANSETRON 4MG/2ML VIAL IV ONE (13:00)
[2020-09-12 13:01] LABS: HEMATOCRIT 29.1 % (36.0-47.0); MEAN CORPUSCULAR HEMOGLOBIN 30.8 pg (27.0-33.0); MEAN CORPUSCULAR HGB CONC 34.4 g/dl (32.0-36.5); MEAN CORPUSCULAR VOLUME 89.5 fl (80.0-96.0); PLATELET COUNT, AUTOMATED 363 10^3/uL (150-450); RED BLOOD COUNT 3.25 10^6/uL (4.00-5.40); WHITE BLOOD COUNT 18.5 10^3/uL (4.0-10.0)
[2020-09-12] MEDS ORDERED: MORPHINE 2 MG/ML 1ML VIAL (J2270) IV ONE (13:15)
[2020-09-12 13:23] LABS: ANISOCYTOSIS 1+; ATYPICAL LYMPH 4 % (0-5); LYMPHOCYTES 9 % (16-44); MONOCYTES 5 % (0-5); MYELOCYTES 1 % (0-0); NEUTROPHILS 61 % (28-66); PLATELET CLUMPS SMALL AMT; PLATELET ESTIMATE NORMAL (NORMAL)
[2020-09-12] MEDS ORDERED: ISOVUE-370 76% 100ML VIAL As Ordered ONE (13:25)
[2020-09-12 13:34] LABS: ALBUMIN 2.4 GM/DL (3.2-5.2); BILIRUBIN,DIRECT 0.5 MG/DL (0.0-0.2); BILIRUBIN,TOTAL 1.1 MG/DL (0.2-1.0); TOTAL PROTEIN 6.1 GM/DL (6.4-8.2)
--- NOTE | 2020-09-12 14:03 | REP ---
INDICATION: abdominal pain; s/p . COMPARISON: 08/31/2019 TECHNIQUE: Standard helical technique after the intravenous administration of 100 cc Isovue 370. FINDINGS: The lung bases are unchanged. The liver, gallbladder, spleen, pancreas, adrenal glands, and kidneys are within normal limits. There are a few mildly dilated gas and fluid-filled small bowel loops in the left upper quadrant. There is a small amount of free fluid in the pelvis and trapped in the leafs of the small bowel mesentery. There are a few dots of free air in the pelvis. There is enlargement of the uterus with air density with in the endometrial cavity. The osseous structures are within normal limits. IMPRESSION: 1. Probable small bowel ileus. 2. Free fluid as described above. Probably reactive, however, etiology uncertain. Follow-up is recommended. 3. Tiny dots of free air in the pelvis, however, the patient is status post . Follow-up is recommended. <Electronically signed by Timbo Ashton > 09/12/20 [id number]
[2020-09-12] MEDS ORDERED: KCL 10MEQ/100ML SWI (KRUN) 10 MEQ in IV 1 EA IV ONE (14:50)
[2020-09-12] MEDS ORDERED: ACETAMINOPHEN 325 MG TAB PO ONE (15:40)
[2020-09-12] MEDS ORDERED: PIPERACILLIN/TAZOBACTAM SOD 3.375 GM in D5W MINI-BAG PLUS 50 ML IV ONE (15:50)
--- NOTE | 2020-09-12 16:53 | ECGEPIP ---
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
[2020-09-12] MEDS ORDERED: IBUP80TA PO (16:56)
[2020-09-12] MEDS ORDERED: VITA500030 PO (16:56)
[2020-09-12] MEDS ORDERED: DOCU100C16 PO (16:56)
[2020-09-12] MEDS ORDERED: OXYC1TAB23 PO (16:56)
[2020-09-12] MEDS ORDERED: IBUPROFEN 800 MG TAB PO ONE (17:00)
[2020-09-12 19:12] LABS: RSV AMPLIFICATION NEGATIVE (NEGATIVE)
[2020-09-12] MEDS: DOCUSATE SODIUM 100MG CAPSULE PO SCH ×2 (20:57→21:37)
[2020-09-12] MEDS: LR 1,000 ML IV SCH (20:57)
[2020-09-12] MEDS: IBUPROFEN 800 MG TAB PO PRN ×2 (20:59→21:37)
--- NOTE | 2020-09-12 21:04 | IPNPDOC ---
Text Note Date of Service The patient was seen on 09/12/20. NOTE H&P: HPI: 25yo 7 days from a 1LTCS for arrest of dilation, presents to ED with fever and increasing abdominal pain. Mrs Melgar reports a uncomplicated c/s at [facility] and was discharge home on POD#2 in good condition. Her pain and lochia has been manageable until Wednesday. She reports that her pain increased during the day. She took a suppository and had two BM that improved her pain. On her pain returned and she reported several fever with Tmax 101.6 Deneis URI or UTI symptoms. Not breast feeding , but pumping and supplementing with formula. PHMx: none PSHx: section Meds: Ibuprofen prn NKDA SH: denies tobacco, ETOH or drug use. Lives with and son. PE: 103.1, 110/78, 118, 18 Gen: NAD CHEST: CTAB CVS: RRR Breast no tenderness or engorgement or erythremic ABD: Diffuse lower abd tenderness WBC: 18,000 A/P: 25yo 7 days /postoperative with endomyometritis. - started on Zosyn - start bowel regiment for constipation Leidy Billy MD VSYoselin I+O VSYoselin I+O Laboratory Tests 09/12/20 12:47 Vital Signs Date Time Temp Pulse Resp B/P (MAP) Pulse Ox O2 Delivery O2 Flow Rate FiO2 09/12/20 18:19 101.3 09/12/20 17:12 20 09/12/20 17:06 135 97 09/12/20 15:36 Room Air LEIDY BILLY MD. Sep 12, 2020 21:04
[2020-09-12] MEDS ORDERED: ONDANSETRON 4MG/2ML VIAL IV PRN (21:05)
[2020-09-12 21:14] VITALS: BP 104/57
[2020-09-12 21:25] VITALS: BP 117/55
[2020-09-12] MEDS: PERCOCET 5MG/325MG TAB PO PRN (21:49)
[2020-09-13] MEDS: PIPERACILLIN/TAZOBACTAM SOD 3.375 GM in D5W MINI-BAG PLUS 50 ML IV SCH ×5 (00:16→23:34)
[2020-09-13] MEDS: LR 1,000 ML IV SCH ×2 (04:24→12:15)
[2020-09-13] MEDS: PERCOCET 5MG/325MG TAB PO PRN (04:26)
[2020-09-13] MEDS: IBUPROFEN 800 MG TAB PO PRN ×3 (06:05→23:35)
[2020-09-13 06:36] VITALS: BP 118/58
[2020-09-13] MEDS ORDERED: FLEET ENEMA PR PRN (08:55)
[2020-09-13] MEDS ORDERED: BISACODYL 10 MG SUPP PR PRN (08:55)
--- NOTE | 2020-09-13 08:57 | IPNPDOC ---
Text Note Date of Service The patient was seen on 09/13/20. NOTE Progress Reports continued bloating and discomfort due to constipation. Voiding, passing flatus VSS, afebrile, normotensive Fundus firm Abdomen softly distended Wound clean,dry, healing well Lochia rubra scant PO section, constipation Dulcolax tabs this am with fleets enema. Suppository this pm if required Enc fluids, prunes, fibre. VS,Fishbone, I+O VS, Fishbone, I+O Laboratory Tests 09/12/20 12:47 Vital Signs Date Time Temp Pulse Resp B/P (MAP) Pulse Ox O2 Delivery O2 Flow Rate FiO2 09/13/20 06:36 97.3 100 17 118/58 (78) 97 09/13/20 04:26 Room Air I&O- Last 24 Hours up to 6 AM 09/13/20 06:00 Intake Total 2125 ml Output Total 1450 ml Balance 675 ml Elda Galloway CNM Sep 13, 2020 08:57
[2020-09-13] MEDS ORDERED: MOM 30ML SUSPENSION UDC PO SCH (09:00)
[2020-09-13] MEDS: DOCUSATE SODIUM 100MG CAPSULE PO SCH ×2 (09:34→20:46)
[2020-09-13 10:00] VITALS: BP 116/58
[2020-09-13] MEDS: ACETAMINOPHEN 500 MG TAB PO PRN ×2 (10:53→17:16)
[2020-09-13] MEDS ORDERED: BISACODYL 5 MG TAB PO ONE (11:00)
[2020-09-13] MEDS: LEVOTHYROXINE 50MCG TABLET (0.05MG) PO SCH (13:30)
[2020-09-13 14:00] VITALS: BP 113/63
[2020-09-13 17:26] VITALS: BP 95/53
[2020-09-13] MEDS ORDERED: ESCITALOPRAM OXALATE 10 MG TAB (LEXAPRO) PO ONE (21:00)
[2020-09-13 22:00] VITALS: BP 116/58
[2020-09-14 02:00] VITALS: BP 107/56
[2020-09-14] MEDS: PIPERACILLIN/TAZOBACTAM SOD 3.375 GM in D5W MINI-BAG PLUS 50 ML IV SCH ×2 (05:29→11:00)
[2020-09-14] MEDS: LEVOTHYROXINE 50MCG TABLET (0.05MG) PO SCH (05:32)
[2020-09-14 06:00] VITALS: BP 117/59
--- NOTE | 2020-09-14 07:54 | IPNPDOC ---
Text Note Date of Service The patient was seen on 09/14/20. NOTE PO Feeling much better now that bowels are moving freely. Adequate PO pain management Voiding Afebrile >24hrs Would like to consider discharge. Will consult Dr Pablo. VS,Yoselin, I+O VS, Yoselin, I+O Vital Signs Date Time Temp Pulse Resp B/P (MAP) Pulse Ox O2 Delivery O2 Flow Rate FiO2 09/14/20 06:00 98.1 90 16 117/59 (78) 98 Room Air I&O- Last 24 Hours up to 6 AM 09/14/20 06:00 Intake Total 360 ml Balance 360 ml Elda Galloway CNM Sep 14, 2020 07:54
[2020-09-14] MEDS: DOCUSATE SODIUM 100MG CAPSULE PO SCH (09:31)
[2020-09-14] MEDS: IBUPROFEN 800 MG TAB PO PRN (09:34)
[2020-09-14 10:00] VITALS: BP 106/57
[2020-09-14 11:06] LABS: HEMATOCRIT 26.5 % (36.0-47.0); HEMOGLOBIN 8.8 g/dl (12.0-15.5); MEAN CORPUSCULAR HEMOGLOBIN 30.7 pg (27.0-33.0); MEAN CORPUSCULAR HGB CONC 33.2 g/dl (32.0-36.5); MEAN CORPUSCULAR VOLUME 92.3 fl (80.0-96.0); PLATELET COUNT, AUTOMATED 526 10^3/uL (150-450); RED BLOOD COUNT 2.87 10^6/uL (4.00-5.40); WHITE BLOOD COUNT 27.8 10^3/uL (4.0-10.0)
[2020-09-14] MEDS ORDERED: AUGM875T28 PO (13:43)
[2020-09-14 14:00] VITALS: BP 119/62
[2020-09-14] MEDS ORDERED: AUGMENTIN 875 MG TAB PO ONE (14:00)
--- NOTE | 2020-09-14 19:06 | DS.PDOC ---
Discharge Summary General Date of Admission Sep 12, 2020 at 17:40 Date of Discharge 09/14/20 Discharge Summary DATE OF ADMISSION: 09/13/2019 DATE OF DISCHARGE: 09/15/2019 ADMISSION DIAGNOSIS: endomyometritis DISCHARGE DIAGNOSIS: Same; clinically improved DISCHARGE SUMMARY: The patient was admitted on 09/12/2020 with a diagnosis of endomyometritis. She underwent a primary low transverse section on 09/05/2020 at [facility] for nonreassuring heart rate tracing. Upon admission she was immediately started on IV antibiotics with Zosyn. Shortly thereafter she started to feel much improved, and her fever defervesced. She remained afebrile for close to 48 hours prior to her discharge. She was discharged home with the plan of continuing oral antibiotics with Aug mentin 875 mg twice daily x1 week. She was instructed to follow-up on 09/16/2020 at [facility] office for vital signs check and a repeat CBC. PHYSICAL EXAMINATION ON DATE OF DISCHARGE: Normotensive. Normal heart rate. Afebrile. HEART: Regular rate and rhythm. No murmurs, gallops, or rubs. LUNGS: Clear to auscultation bilaterally. ABDOMEN: Soft, nontender, nondistended. No guarding or rebound tenderness mild to moderate uterine tenderness (patient noted to be improved compared to admission exam) Incision clean dry and intact EXTREMITIES: Nonedematous, nontender. She was meeting all discharge criteria on 09/14/2020, and she was highly desirous of discharge to home to be back with her baby and to be in the comfort of her own home/bed. We discussed my concerns with her most recent CBC (anemia, white blood cell count and platelet count being slightly more elevated than what it was upon admission), but she was still adamant about proceeding with managing her condition as an outpatient. She is a reliable patient with a good support system and she will call/return if her symptoms of fever and abdominal pain return significantly worsen. We reviewed routine fever, infectious, pain, and bleeding precautions. Lali Pablo, DO Vital Signs/I&Os Vital Signs Date Time Temp Pulse Resp B/P (MAP) Pulse Ox O2 Delivery O2 Flow Rate FiO2 09/14/20 14:00 98.6 95 18 119/62 (81) 95 Room Air I&O- Last 24 Hours up to 6 AM 09/14/20 06:00 Intake Total 360 ml Balance 360 ml Laboratory Data Labs 24H Laboratory Tests 2 09/14/20 10:36: Nucleated Red Blood Cells % (auto) 0.0 CBC/BMP Laboratory Tests 09/14/20 10:36 Microbiology Microbiology 09/12/20 Blood Culture - Preliminary, Resulted No Growth after 48 hours. All Specime... 09/12/20 Blood Culture - Preliminary, Resulted No Growth after 48 hours. All Specime... Discharge Medications Scheduled Amoxicillin/Potassium Clav (Augmentin 875-125 Tablet) 1 Each Tablet, 1 TAB PO BID Cholecalciferol (Vitamin D3) (Vitamin D3) 125 Mcg Tablet, 125 MCG PO QHS, (Reported) Docosahexanoic Acid (Dha) 100 Mg Capsule, 200 MG PO QHS, (Reported) Docusate Sodium (Docusate Sodium) 100 Mg Capsule, 100 MG PO TID, (Reported) Escitalopram Oxalate (Lexapro) 10 Mg Tablet, 10 MG PO QHS, (Reported) Levothyroxine Sodium (Levothyroxine Sodium) 50 Mcg Tablet, 50 MCG PO QAM, (Reported) Vit,Calc76/Iron/Folic (Prenatabs Rx Tablet) 1 Each Tablet, 1 TAB PO QHS, (Reported) Scheduled PRN Ibuprofen (Ibuprofen) 800 Mg Tablet, 800 MG PO Q8H PRN for PAIN LEVEL 3-5, (Reported) Oxycodone HCl/Acetaminophen (Oxycodone-Acetaminophen 5-325) 1 Each Tablet, 1 TAB PO Q6H PRN for PAIN LEVEL 6-10, (Reported) Allergies Coded Allergies: No Known Allergies (Unverified , 02/06/18) REBEKAH PABLO DO Sep 14, 2020 19:06
== END 2020-09-14 16:47 | disposition home or self-care (01) | DRG 561 ==
LOC: M ED 12:21 → M ED INP 17:40 → M OBS 19:52
PROVIDERS: ADMIT Obstetrics & Gynecology; ATTEND Obstetrics & Gynecology
DX: O86.12 Endometritis following delivery (principal); Z79.899 Other long term (current) drug therapy

== ENCOUNTER → 2020-09-16 | Outpatient (CLI) | payer OTHER ==
[~2020-09-16] MED LIST changes: +AUGM875T28 PO; +DOCU100C16 PO; +IBUP80TA PO; +OXYC1TAB23 PO; +VITA500030 PO
[2020-09-16 17:53] LABS: HEMATOCRIT 27.2 % (36.0-47.0); HEMOGLOBIN 8.6 g/dl (12.0-15.5); MEAN CORPUSCULAR HGB CONC 31.6 g/dl (32.0-36.5); MEAN CORPUSCULAR VOLUME 94.8 fl (80.0-96.0); PLATELET COUNT, AUTOMATED 510 10^3/uL (150-450); RED BLOOD COUNT 2.87 10^6/uL (4.00-5.40); WHITE BLOOD COUNT 16.5 10^3/uL (4.0-10.0)
[2020-09-16 18:25] LABS: FREE T4 1.73 NG/DL (0.76-1.46); THYROID STIMULATING HORMONE 1.2 uIU/ML (0.358-3.740)
[2020-09-16 21:11] LABS: BASOPHILS 1 % (0-1); LYMPHOCYTES 20 % (16-44); METAMYELOCYTES 2 % (0-0); MONOCYTES 3 % (0-5); MYELOCYTES 3 % (0-0); NEUTROPHILS 71 % (28-66)
[2020-09-16 21:12] LABS: HYPOCHROMASIA 1+
[2020-09-16 21:13] LABS: PLATELET ESTIMATE INCREASED (NORMAL)
== END ==
LOC: M PLALAB 14:18
PROVIDERS: ATTEND Advanced Practice Midwife
DX: O86.12 Endometritis following delivery (principal); O99.285 Endocrine, nutritional and metabolic diseases complicating the puerperium; E03.9 Hypothyroidism, unspecified

== ENCOUNTER → 2020-09-23 | Outpatient (REF) | payer OTHER | LOC: M SFHCWAGY 12:55 | PROVIDERS: ATTEND Obstetrics & Gynecology | DX: O86.00 Infection of obstetric surgical wound, unspecified (principal) ==

== ENCOUNTER → 2021-01-01 | Outpatient (CLI) | payer OTHER ==
[~2021-01-01] MED LIST changes: +ASPI1TAB22 PO; +FERR1TAB8 PO
[2021-01-01 18:13] LABS: HEMATOCRIT 35.4 % (36.0-47.0); HEMOGLOBIN 11.2 g/dl (12.0-15.5); MEAN CORPUSCULAR HEMOGLOBIN 25.9 pg (27.0-33.0); MEAN CORPUSCULAR HGB CONC 31.6 g/dl (32.0-36.5); MEAN CORPUSCULAR VOLUME 81.9 fl (80.0-96.0); PLATELET COUNT, AUTOMATED 462 10^3/uL (150-450); RED BLOOD COUNT 4.32 10^6/uL (4.00-5.40); WHITE BLOOD COUNT 17.6 10^3/uL (4.0-10.0)
[2021-01-01 18:46] LABS: ALT/SGPT 13 U/L (12-78); BILIRUBIN,TOTAL 0.7 MG/DL (0.2-1.0); BLOOD UREA NITROGEN 8 MG/DL (7-18); CALCIUM LEVEL 9.5 MG/DL (8.5-10.1); CARBON DIOXIDE LEVEL 28 MEQ/L (21-32); CHLORIDE LEVEL 101 MEQ/L (98-107); CREATININE FOR GFR 0.73 MG/DL (0.55-1.30); FERRITIN 75 NG/ML (8-252); FREE T4 1.69 NG/DL (0.76-1.46); GLOMERULAR FILTRATION RATE > 60.0 (>60); GLUCOSE, FASTING 105 MG/DL (70-100); POTASSIUM SERUM 4.1 MEQ/L (3.5-5.1); SODIUM LEVEL 136 MEQ/L (136-145); THYROID STIMULATING HORMONE 0.103 uIU/ML (0.358-3.740); TOTAL 25(OH) VITAMIN D 41.8 NG/ML (30.0-100.0); TOTAL PROTEIN 7.3 GM/DL (6.4-8.2)
== END ==
LOC: M PLALAB 14:32
PROVIDERS: ATTEND Obstetrics & Gynecology
DX: R61 Generalized hyperhidrosis (principal)

== ENCOUNTER → 2021-01-01 | Outpatient (REF) | payer OTHER ==
[~2021-01-01] MED LIST changes: +BACT800T5 PO; +PERCOCET PO
== END ==
LOC: M PLALAB 14:39
PROVIDERS: ATTEND Obstetrics & Gynecology
DX: Z53.9 Procedure and treatment not carried out, unspecified reason (principal)

== ENCOUNTER → 2021-01-01 | Outpatient (REF) | payer OTHER | LOC: M SFHCWAGY 18:44 | PROVIDERS: ATTEND Obstetrics & Gynecology | DX: Z12.4 Encounter for screening for malignant neoplasm of cervix (principal) ==

== ENCOUNTER 2021-01-02 16:13 | Inpatient (IN) | payer OTHER ==
[~2021-01-02] VITALS: Ht 177.8 cm; Wt 66.6 kg
[~2021-01-02 16:13] MED LIST changes: -ASPI1TAB22 PO; -BACT800T5 PO; -FERR1TAB8 PO; -PERCOCET PO
[2021-01-02] MEDS ORDERED: PERCOCET 5MG/325MG TAB PO PRN ×2 (17:00)
[2021-01-02] MEDS ORDERED: MOM 30ML SUSPENSION UDC PO PRN (17:00)
[2021-01-02 17:25] VITALS: BP 103/63
[2021-01-02] MEDS ORDERED: FERR1TAB8 PO (17:52)
[2021-01-02] MEDS ORDERED: ASPI1TAB22 PO (17:52)
[2021-01-02] MEDS ORDERED: HOME MED LIST COMPLETE! XX SCH (17:55)
[2021-01-02] MEDS: ONDANSETRON 4MG/2ML VIAL IV PRN ×2 (18:39→21:04)
[2021-01-02] MEDS: LR 1,000 ML IV SCH (18:40)
[2021-01-02] MEDS: PIPERACILLIN/TAZOBACTAM SOD 3.375 GM in D5W MINI-BAG PLUS 50 ML IV SCH (18:40)
[2021-01-02] MEDS ORDERED: ROCURONIUM BROMIDE 50 MG/5 ML VIAL As Ordered ONE (19:14)
[2021-01-02] MEDS ORDERED: ONDANSETRON 4MG/2ML VIAL As Ordered ONE (19:14)
[2021-01-02] MEDS ORDERED: KETOROLAC 60MG 2ML VIAL As Ordered ONE (19:14)
[2021-01-02] MEDS ORDERED: fentaNYL 100 MCG/2 ML INJECTION (J3010) As Ordered ONE (19:14)
[2021-01-02] MEDS ORDERED: ACETAMINOPHEN 1000MG 100ML IV BTL (OFIRMEV) (J0131 PER 10MG) As Ordered ONE (19:14)
[2021-01-02] MEDS ORDERED: MIDAZOLAM INJ 2MG/2ML VIAL (J2250 PER 1MG) As Ordered ONE (19:14)
[2021-01-02] MEDS ORDERED: SUGAMMADEX SODIUM 500 MG/5 ML VIAL (BRIDION) As Ordered ONE (19:14)
[2021-01-02] MEDS ORDERED: propofoL 200 MG/20 ML VIAL As Ordered ONE (19:14)
[2021-01-02] MEDS ORDERED: LIDOCAINE 2% 100MG/5ML SDV (FOR ANES.) As Ordered ONE (19:14)
[2021-01-02] MEDS ORDERED: dexameTHASONE 4 MG/ML 1ML VIAL (J1100 PER 1MG) As Ordered ONE (19:14)
[2021-01-02 19:28] LABS: ALBUMIN 3.3 GM/DL (3.2-5.2); ALT/SGPT 14 U/L (12-78); BILIRUBIN,TOTAL 0.6 MG/DL (0.2-1.0); BLOOD UREA NITROGEN 7 MG/DL (7-18); CALCIUM LEVEL 9.5 MG/DL (8.5-10.1); CARBON DIOXIDE LEVEL 24 MEQ/L (21-32); CHLORIDE LEVEL 100 MEQ/L (98-107); GLOMERULAR FILTRATION RATE > 60.0 (>60); GLUCOSE, FASTING 100 MG/DL (70-100); POTASSIUM SERUM 3.7 MEQ/L (3.5-5.1); SODIUM LEVEL 135 MEQ/L (136-145)
[2021-01-02] MEDS ORDERED: LIDOCAINE 1% SDV 30ML VIAL As Ordered ONE (19:32)
[2021-01-02] MEDS ORDERED: SCOPOLAMINE 1MG TRANSDERMAL PATCH As Ordered ONE (19:52)
[2021-01-02] MEDS ORDERED: fentaNYL 100 MCG/2 ML INJECTION (J3010) IV PRN (20:55)
[2021-01-02] MEDS ORDERED: ONDANSETRON 4MG/2ML VIAL IV PRN (20:55)
[2021-01-02] MEDS ORDERED: oxyCODONE 5MG TAB PO PRN (20:55)
[2021-01-02] MEDS ORDERED: LR 1,000 ML IV SCH (20:55)
[2021-01-02 21:30] VITALS: BP 105/65
--- NOTE | 2021-01-02 21:30 | IPNPDOC ---
Text Note Date of Service The patient was seen on 01/02/21. NOTE H&P: HPI: 25yo presents with intense incisional pain and swelling along incision. Patient had 1LTCS for arrest of dilation 09/04/20 at [facility], which was complicated by postoperative endomyometritis, two seroma which was drained and packed. The last seroma spontaneous opened and was paced for several week in September. Mrs Melgar reports feeling well >2months without issues. She was seen yesterday for yearly and was feeling fine. She had notice some mild discomfort along the incision. This morning she report a significant change in appearance of incision with increase pain. PHMx: none PSHx: section Meds: none NKDA SH: denies tobacco, ETOH or drug use. Lives with and son. PE: 100.3, 103/68, 133, 20 Gen: NAD CHEST: CTAB CVS: RRR ABD: Diffuse lower abd tenderness incision: Very indurated, exquisitely tender and erythemic A/P: 25yo with an incisional abscess versus necrotizing fasciitis -General surgery consult with Dr. Amaro plans for exploration of incision with possible debriding incision Leidy Billy MD VS,Yoselin I+O VS, Yoselin I+O Laboratory Tests 01/02/21 18:10 Vital Signs Date Time Temp Pulse Resp B/P (MAP) Pulse Ox O2 Delivery O2 Flow Rate FiO2 01/02/21 21:15 97.5 101 16 113/66 (82) 98 Nasal Cannula 2.0 LEIDY BILLY MD. Jan 02, 2021 21:30
[2021-01-02] MEDS: DOCUSATE SODIUM 100MG CAPSULE PO SCH (21:35)
[2021-01-02 21:50] LABS: HEMATOCRIT 30.6 % (36.0-47.0); HEMOGLOBIN 10.1 g/dl (12.0-15.5); MEAN CORPUSCULAR HEMOGLOBIN 26.3 pg (27.0-33.0); MEAN CORPUSCULAR VOLUME 79.7 fl (80.0-96.0); PLATELET COUNT, AUTOMATED 397 10^3/uL (150-450); RED BLOOD COUNT 3.84 10^6/uL (4.00-5.40); WHITE BLOOD COUNT 19.7 10^3/uL (4.0-10.0)
[2021-01-02 22:30] VITALS: BP 105/65
[2021-01-02 23:00] VITALS: BP 92/56
[2021-01-03] VITALS: BP 105/63
[2021-01-03 01:00] VITALS: BP 104/60
[2021-01-03] MEDS: LR 1,000 ML IV SCH ×2 (01:38→06:44)
[2021-01-03] MEDS: PIPERACILLIN/TAZOBACTAM SOD 3.375 GM in D5W MINI-BAG PLUS 50 ML IV SCH ×2 (01:38→08:24)
[2021-01-03 02:00] VITALS: BP 98/66
[2021-01-03 03:00] VITALS: BP 104/68
[2021-01-03 07:00] VITALS: BP 94/61
[2021-01-03] MEDS ORDERED: BACT800T5 PO (07:43)
[2021-01-03] MEDS ORDERED: PERCOCET PO (07:48)
--- NOTE | 2021-01-03 08:01 | RO ---
OPERATIVE NOTE DATE OF OPERATION: 01/02/2021 PREOPERATIVE DIAGNOSIS: Suprapubic abscess. POSTOPERATIVE DIAGNOSIS: Suprapubic abscess. PROCEDURES: Incision and drainage with some sharp excisional debridement of the wound. SURGEON: Bismark Amaro DO DEPUTY BAILIFF: NIMCO BAKER MD, who assisted with washout of the wound and retraction. ANESTHESIA: General. ESTIMATED BLOOD LOSS: 5 mL. COMPLICATIONS: None. INDICATIONS FOR PROCEDURE: The patient is a 25-year-old female who is status post section back in August who has had a persistent wound infection. She came in today as a direct admit from Dr. Asencio's office with a wound. On exam, she was having fevers, had a very large wound, extremely tender to palpation in the suprapubic area. The recommendation was to take her to the operating room for incision and drainage, possible debridement with suspicion of possible necrotizing fasciitis. Risks and benefits of the procedure, not limited to but including bleeding, infection, damage to surrounding structures, and need for further surgery were discussed in detail with the patient. Informed consent was obtained and the procedure was planned. DESCRIPTION OF PROCEDURE: The patient was brought back to operating room #3. After successful sedation, the abdomen was sterilely prepped and draped with Betadine. Next, a time-out was done to confirm the proper patient and proper procedure. Following that, an elliptical incision was made around the midline of her incision where there was already an opening and purulent drainage coming out. Cultures were first taken for aerobic and anaerobic cultures, but after that the elliptical incision was made using cautery to debride the edges of the wound. The wound was then irrigated out with about a liter of warm saline. Examination of the wound showed that it did tunnel deep and superiorly. It did not appear to penetrate the fascia, though. After profuse irrigation, cautery was used to control hemostasis around the edges of the wound. The edges were debrided for approximately 6 cm in length going through the skin and subcutaneous tissues. Once the wound was completely stabilized, it was packed with 1-inch Iodoform packing. It was covered with 4x4s and tape, thus ending the procedure. The patient tolerated the procedure well and was sent to the PACU in stable condition.
[2021-01-03] MEDS: DOCUSATE SODIUM 100MG CAPSULE PO SCH (08:24)
--- NOTE | 2021-01-03 09:06 | CR ---
CONSULTATION DATE: 01/02/2021 REASON FOR CONSULTATION: Abdominal wall abscess, possible necrotizing fasciitis. HISTORY OF PRESENT ILLNESS: The patient is a 25-year-old female who underwent a on August 05 at [facility]. This has been complicated by multiple episodes of wound infection at her scar including multiple seromas that have been drained and packed. She now presents after two months of not having any problems with some lower abdominal pains. She saw Dr. Pablo in the office yesterday. Overnight, the pain got significantly worse. She spoke with Dr. Asencio today and he sent her over to the hospital for a direct admit. I evaluated her at the bedside with Dr. Billy. Her wound is very erythematous, has significant out of proportion for an abscess and the scar itself is starting to turn de la torre. There is a high concern for possible necrotizing fasciitis. The plan was to take her directly to the Operating Room for evaluation. PAST MEDICAL HISTORY: Chronic abdominal wall wound. PAST SURGICAL HISTORY: . HOME MEDICATIONS: None. ALLERGIES: None. SOCIAL HISTORY: Denies drug, alcohol or tobacco abuse. FAMILY HISTORY: Noncontributory. REVIEW OF SYSTEMS: Pertinent positives and negatives as stated in the HPI. PHYSICAL EXAMINATION: Alert and oriented x3, in no acute distress. Vitals: Temperature 100.3, pulse 133, respirations 20, blood pressure is 103/63, pulse oximetry 100% on room air. HEENT: Pupils equally round and reactive to light and accommodation. Heart: S1 and S2, regular rate and rhythm. Abdomen is soft, tender to palpation suprapubically over her scar. There is erythema surrounding the scar. She has hyperesthesia in the area and the midline of the scar is turning de la torre. Extremities: No cyanosis, clubbing or edema. LABORATORY DATA: White count 19.7, hemoglobin 10.1, platelets 397,000. Potassium 3.7, creatinine 0.9. ASSESSMENT AND PLAN: Patient is a 25-year-old female with lower abdominal wall incision that has developed an abscess versus necrotizing fasciitis. The recommendation is to take her to the Operating Room for incision and drainage, possible debridement. The risks and benefits of the procedure not limited to but including bleeding, infection, damage to surrounding structures, need for further surgery was discussed in detail with the patient. The procedure was planned with Dr. Billy and myself together. Once we had consent, she was brought immediately to the Operating Room for the procedure.
[2021-01-03 09:16] LABS: HEMATOCRIT 31.2 % (36.0-47.0); HEMOGLOBIN 9.9 g/dl (12.0-15.5); MEAN CORPUSCULAR HEMOGLOBIN 25.8 pg (27.0-33.0); MEAN CORPUSCULAR HGB CONC 31.7 g/dl (32.0-36.5); MEAN CORPUSCULAR VOLUME 81.5 fl (80.0-96.0); PLATELET COUNT, AUTOMATED 403 10^3/uL (150-450); RED BLOOD COUNT 3.83 10^6/uL (4.00-5.40); WHITE BLOOD COUNT 14.4 10^3/uL (4.0-10.0)
== END 2021-01-03 11:14 | disposition hospice, home (50) | DRG 364 ==
LOC: M MSPAV 17:09
PROVIDERS: ADMIT Obstetrics & Gynecology; ATTEND Obstetrics & Gynecology
PROC: 0JBC0ZZ Excision of Pelvic Region Subcutaneous Tissue and Fascia, Open Approach (ICD-10-PCS; 2021-01-02)
PROC: 0J9C0ZZ Drainage of Pelvic Region Subcutaneous Tissue and Fascia, Open Approach (ICD-10-PCS; principal; 2021-01-02 18:53)
DX: L03.311 Cellulitis of abdominal wall (principal); O86.03 Infection of obstetric surgical wound, organ and space site; O99.73 Diseases of the skin and subcutaneous tissue complicating the puerperium

== ENCOUNTER → 2021-01-13 | Outpatient (CLI) | payer OTHER ==
[~2021-01-13] MED LIST changes: +ASPI1TAB22 PO; +BACT800T5 PO; +FERR1TAB8 PO; +PERCOCET PO
[2021-01-13 17:37] LABS: HEMATOCRIT 34.6 % (36.0-47.0); MEAN CORPUSCULAR HEMOGLOBIN 26.1 pg (27.0-33.0); MEAN CORPUSCULAR HGB CONC 31.8 g/dl (32.0-36.5); PLATELET COUNT, AUTOMATED 506 10^3/uL (150-450); RED BLOOD COUNT 4.22 10^6/uL (4.00-5.40); WHITE BLOOD COUNT 7.8 10^3/uL (4.0-10.0)
[2021-01-13 18:14] LABS: FREE T4 1.36 NG/DL (0.76-1.46); PERCENT SATURATION 15.7 % (13.2-45.0); THYROID STIMULATING HORMONE 1.54 uIU/ML (0.358-3.740)
== END ==
LOC: M PLALAB 13:49
PROVIDERS: ATTEND Obstetrics & Gynecology
DX: R61 Generalized hyperhidrosis (principal); O86.00 Infection of obstetric surgical wound, unspecified

== ENCOUNTER → 2021-01-28 | Outpatient (CLI) | payer OTHER ==
[~2021-01-28] MED LIST changes: +BCP PO; +SYNT25TA PO
[2021-01-28 10:54] LABS: HEMATOCRIT 39.5 % (36.0-47.0); HEMOGLOBIN 12.4 g/dl (12.0-15.5); MEAN CORPUSCULAR HEMOGLOBIN 25.9 pg (27.0-33.0); MEAN CORPUSCULAR HGB CONC 31.4 g/dl (32.0-36.5); MEAN CORPUSCULAR VOLUME 82.5 fl (80.0-96.0); PLATELET COUNT, AUTOMATED 359 10^3/uL (150-450); RED BLOOD COUNT 4.79 10^6/uL (4.00-5.40); WHITE BLOOD COUNT 5.8 10^3/uL (4.0-10.0)
== END ==
LOC: M PLALAB 07:39
PROVIDERS: ATTEND Obstetrics & Gynecology
DX: O86.00 Infection of obstetric surgical wound, unspecified (principal); Z3A.00 Weeks of gestation of pregnancy not specified

== ENCOUNTER → 2021-04-12 | Outpatient (CLI) | payer OTHER | LOC: M LABSMTC 08:48 | PROVIDERS: ATTEND Anesthesiology | DX: Z01.812 Encounter for preprocedural laboratory examination (principal); Z20.822 Contact with and (suspected) exposure to COVID-19 ==

== ENCOUNTER 2021-04-16 11:10 | Day surgery (SDC) | payer OTHER ==
[~2021-04-16] VITALS: Ht 177.8 cm; Wt 71.8 kg
[~2021-04-16 11:10] MED LIST changes: +NS 1,000 ML IV ONE
[2021-04-16] MEDS ORDERED: LIDOCAINE 2% 100MG/5ML SDV (FOR ANES.) As Ordered ONE (12:15)
[2021-04-16] MEDS ORDERED: propofoL 200 MG/20 ML VIAL As Ordered ONE (12:15)
[2021-04-16] MEDS ORDERED: ONDANSETRON 4MG/2ML VIAL As Ordered ONE (12:37)
[2021-04-16 13:18] VITALS: BP 98/57
== END 2021-04-16 13:20 | disposition home or self-care (01) ==
LOC: M OPP 11:10
PROVIDERS: ATTEND Surgery
DX: K63.5 Polyp of colon (principal); K63.2 Fistula of intestine; K64.1 Second degree hemorrhoids; K92.1 Melena; Z79.899 Other long term (current) drug therapy
CPT/HCPCS: 45378; J2405

== ENCOUNTER 2021-05-16 06:18 | Day surgery (SDC) | payer OTHER ==
[2021-05-16] VITALS (8 sets, daily range): BP systolic 107–113; BP diastolic 55–64
[~2021-05-16] VITALS: Ht 177.8 cm; Wt 72.9 kg
[~2021-05-16 06:18] MED LIST changes: -DOXY150C PO; +DOXY150C3 PO; +LEVO50TA5; -NS 1,000 ML IV ONE; +[UNRECOGNIZED DRUG - CODE]
[2021-05-16] MEDS ORDERED: LR 1,000 ML IV ONE (06:30)
[2021-05-16] MEDS ORDERED: ERTAPENEM SODIUM 1 GM in NS MINI-BAG PLUS 50 ML IV ONE (06:30)
[2021-05-16] MEDS ORDERED: SCOPOLAMINE 1MG TRANSDERMAL PATCH TOP ONE (07:10)
[2021-05-16] MEDS ORDERED: fentaNYL 250 MCG/5 ML INJECTION As Ordered ONE (07:18)
[2021-05-16] MEDS ORDERED: propofoL 200 MG/20 ML VIAL As Ordered ONE (07:18)
[2021-05-16] MEDS ORDERED: ROCURONIUM BROMIDE 50 MG/5 ML VIAL As Ordered ONE ×2 (07:18→08:46)
[2021-05-16] MEDS ORDERED: LIDOCAINE 2% 100MG/5ML SDV (FOR ANES.) As Ordered ONE (07:18)
[2021-05-16] MEDS ORDERED: MIDAZOLAM INJ 2MG/2ML VIAL (J2250 PER 1MG) As Ordered ONE (07:19)
[2021-05-16] MEDS ORDERED: LACRILUBE (AKWA TEARS) OPHTH OINT 3.5 GM As Ordered ONE (07:48)
[2021-05-16] MEDS ORDERED: LIDOCAINE W/EPINEPHRINE 1% 20ML VIAL As Ordered ONE (08:01)
[2021-05-16] MEDS ORDERED: ePHEDrine SULFATE 25 MG/5 ML(5MG/ML) SYRINGE As Ordered ONE (08:42)
[2021-05-16] MEDS ORDERED: ACETAMINOPHEN 1000MG 100ML IV BTL (OFIRMEV) (J0131 PER 10MG) As Ordered ONE (08:42)
[2021-05-16] MEDS ORDERED: KETOROLAC 60MG 2ML VIAL As Ordered ONE (08:42)
[2021-05-16] MEDS ORDERED: dexameTHASONE 4 MG/ML 1ML VIAL (J1100 PER 1MG) As Ordered ONE (08:43)
[2021-05-16] MEDS ORDERED: ONDANSETRON 4MG/2ML VIAL As Ordered ONE ×2 (08:43→10:26)
[2021-05-16] MEDS ORDERED: METOCLOPRAMIDE INJ 10MG/2ML VIAL (J2765 PER 1) As Ordered ONE (08:43)
[2021-05-16] MEDS ORDERED: HYDROmorphone HCL 2MG/ML 1ML VIAL As Ordered ONE (09:53)
[2021-05-16] MEDS ORDERED: SUGAMMADEX SODIUM 500 MG/5 ML VIAL (BRIDION) As Ordered ONE (09:55)
[2021-05-16] MEDS ORDERED: MEPERIDINE INJ 25 MG/ML VIAL (J2175) As Ordered ONE (10:26)
[2021-05-16] MEDS: MEPERIDINE INJ 25 MG/ML VIAL (J2175) IV PRN ×2 (10:30→10:35)
[2021-05-16] MEDS ORDERED: HYDROMORPHONE HCL 0.5 MG/ 0.5 ML SYRINGE (J1170 PER 1) IV PRN (10:30)
[2021-05-16] MEDS ORDERED: oxyCODONE 5MG TAB PO PRN (10:30)
[2021-05-16] MEDS ORDERED: fentaNYL 100 MCG/2 ML INJECTION IV PRN (10:30)
[2021-05-16] MEDS ORDERED: LR 1,000 ML IV SCH (10:30)
[2021-05-16] MEDS ORDERED: ONDANSETRON 4MG/2ML VIAL IV PRN ×2 (10:30→12:20)
[2021-05-16] MEDS ORDERED: diphenhydrAMINE 50MG/ML VIAL (J1200) As Ordered ONE (11:07)
[2021-05-16] MEDS ORDERED: diphenhydrAMINE 50MG/ML VIAL (J1200) IV PRN (11:15)
[2021-05-16] MEDS ORDERED: KETOROLAC 30 MG/ML 1ML VIAL IV PRN (12:20)
[2021-05-16] MEDS ORDERED: NORCO, ANEXSIA 5/325MG TABLET (HYDROcodone/ACETAMINOPHEN) PO PRN (12:20)
[2021-05-16] MEDS: ACETAMINOPHEN TAB 650MG DOSE (2X325MG) PO PRN (14:44)
[2021-05-16] MEDS ORDERED: ESCITALOPRAM OXALATE 10 MG TAB (LEXAPRO) PO SCH (21:00)
[2021-05-17 02:00] VITALS: BP 115/73
[2021-05-17] MEDS ORDERED: LEVOTHYROXINE 50MCG TABLET (0.05MG) PO SCH (06:00)
[2021-05-17 06:02] VITALS: BP 122/68
[2021-05-17] MEDS: ACETAMINOPHEN TAB 650MG DOSE (2X325MG) PO PRN ×2 (07:34→14:34)
[2021-05-17 10:00] VITALS: BP 106/59
[2021-05-17] MEDS ORDERED: HYDR-3715 PO (13:22)
[2021-05-17 14:00] VITALS: BP 109/71
== END 2021-05-17 15:51 | disposition home or self-care (01) ==
LOC: M SDC 06:18 → M MSPAV 12:25 → UNDOADMIN 12:30 → M MS5PR 12:30 → M SDC 05-17 15:51 → UNDODISIN 05-17 15:51
PROVIDERS: ATTEND Surgery
DX: K63.2 Fistula of intestine (principal); N73.6 Female pelvic peritoneal adhesions (postinfective); E03.9 Hypothyroidism, unspecified; F41.9 Anxiety disorder, unspecified; K21.9 Gastro-esophageal reflux disease without esophagitis; Z79.899 Other long term (current) drug therapy; I34.1 Nonrheumatic mitral (valve) prolapse; R01.1 Cardiac murmur, unspecified
CPT/HCPCS: 45402; 58660; S2900

== ENCOUNTER → 2022-01-19 | Outpatient (REF) | payer OTHER ==
[~2022-01-19] MED LIST changes: +HYDR-3715 PO
[2022-01-20 15:46] LABS: APPEARANCE, URINE MANUAL CLOUDY (CLEAR); COLOR, URINE MANUAL YELLOW (YELLOW)
[2022-01-20 15:47] LABS: BILIRUBIN, URINE MANUAL NEGATIVE (NEGATIVE); BLOOD URINE MANUAL POSITIVE (NEGATIVE); GLUCOSE, URINE (UA) MANUAL NEGATIVE (NEGATIVE); KETONE, URINE MANUAL NEGATIVE (NEGATIVE); LEUKOCYTE ESTERASE, URINE MAN POSITIVE (NEGATIVE); NITRITE, URINE MANUAL NEGATIVE (NEGATIVE); PROTEIN, URINE MANUAL 3+ mg/dL (NEGATIVE); SPECIFIC GRAVITY,URINE MANUAL 1.025 (1.002-1.035); UROBILINOGEN, URINE MANUAL NORMAL (NORMAL)
[2022-01-20 16:08] LABS: BACTERIA, URINE LARGE AMOUNT; MUCUS, URINE SMALL AMOUNT (NEGATIVE); RBC, URINE 40-50 /hpf (0-3); SQUAMOUS EPITHELIAL CELL URINE MOD AMOUNT /hpf (SMALL AMT); WBC, URINE TNTC /hpf (0-3)
[2022-01-20 16:09] LABS: HYALINE CAST, URINE NONE SEEN /lpf (0-1)
== END ==
LOC: M LAB REF 15:25
PROVIDERS: ATTEND Physician Assistant Medical
DX: N39.0 Urinary tract infection, site not specified (principal)

== ENCOUNTER → 2022-04-27 | Outpatient (CLI) | payer OTHER ==
[~2022-04-27] MED LIST changes: +NYST-38 PO; -NYST50SS PO
[2022-04-27 17:35] LABS: FREE T4 0.93 NG/DL (0.89-1.76); THYROID STIMULATING HORMONE 2.634 uIU/ML (0.55-4.78)
== END ==
LOC: M PLALAB 15:32
PROVIDERS: ATTEND Advanced Practice Midwife
DX: Z34.90 Encounter for supervision of normal pregnancy, unspecified, unspecified trimester (principal)

== ENCOUNTER → 2022-05-14 | Outpatient (CLI) | payer OTHER | LOC: M PLALAB 15:07 | PROVIDERS: ATTEND Advanced Practice Midwife | DX: Z34.90 Encounter for supervision of normal pregnancy, unspecified, unspecified trimester (principal) ==

== ENCOUNTER → 2022-05-16 | Outpatient (CLI) | payer OTHER | LOC: M LAB 14:20 | PROVIDERS: ATTEND Advanced Practice Midwife | DX: Z34.90 Encounter for supervision of normal pregnancy, unspecified, unspecified trimester (principal); Z3A.00 Weeks of gestation of pregnancy not specified; Z87.59 Personal history of other complications of pregnancy, childbirth and the puerperium ==

== ENCOUNTER → 2022-05-21 | Outpatient (CLI) | payer OTHER | LOC: M LABSMTC 09:02 | PROVIDERS: ATTEND Anesthesiology | DX: Z01.818 Encounter for other preprocedural examination (principal); Z11.52 Encounter for screening for COVID-19 ==

== ENCOUNTER 2022-05-22 10:17 | Day surgery (SDC) | payer OTHER ==
[~2022-05-22] VITALS: Ht 177.8 cm; Wt 75.7 kg
[2022-05-22] MEDS ORDERED: LR 1,000 ML IV SCH ×2 (12:45→15:50)
[2022-05-22] MEDS ORDERED: SCOPOLAMINE 1MG TRANSDERMAL PATCH TOP ONE (13:10)
[2022-05-22] MEDS ORDERED: LIDOCAINE 2% 100MG/5ML SDV (FOR ANES.) As Ordered ONE (13:29)
[2022-05-22] MEDS ORDERED: KETOROLAC 60MG 2ML VIAL As Ordered ONE (13:29)
[2022-05-22] MEDS ORDERED: MIDAZOLAM INJ 2MG/2ML VIAL As Ordered ONE (13:29)
[2022-05-22] MEDS ORDERED: propofoL 200 MG/20 ML VIAL As Ordered ONE ×3 (13:29→15:01)
[2022-05-22] MEDS ORDERED: ONDANSETRON 4MG 2ML VIAL As Ordered ONE (13:29)
[2022-05-22] MEDS ORDERED: fentaNYL 100 MCG/2 ML INJECTION As Ordered ONE (13:30)
[2022-05-22] MEDS ORDERED: LIDOCAINE 1% SDV 30ML VIAL As Ordered ONE (14:01)
[2022-05-22] MEDS ORDERED: LACRILUBE (AKWA TEARS) OPHTH OINT 3.5GM As Ordered ONE (15:00)
[2022-05-22 15:05] LABS: HEMATOCRIT 30.4 % (36.0-47.0); MEAN CORPUSCULAR HEMOGLOBIN 27.4 pg (27.0-33.0); MEAN CORPUSCULAR HGB CONC 32.9 g/dl (32.0-36.5); MEAN CORPUSCULAR VOLUME 83.3 fl (80.0-96.0); PLATELET COUNT, AUTOMATED 280 10^3/uL (150-450); RED BLOOD COUNT 3.65 10^6/uL (4.00-5.40); WHITE BLOOD COUNT 7.6 10^3/uL (4.0-10.0)
[2022-05-22] MEDS ORDERED: oxyCODONE 5MG TAB PO PRN (15:50)
[2022-05-22] MEDS ORDERED: ONDANSETRON 4MG 2ML VIAL IV PRN (15:50)
[2022-05-22] MEDS: fentaNYL 100 MCG/2 ML INJECTION IV PRN ×2 (15:56→16:02)
[2022-05-22 17:12] VITALS: BP 102/60
== END 2022-05-22 17:31 | disposition home or self-care (01) ==
LOC: M SDC 10:17
PROVIDERS: ATTEND Obstetrics & Gynecology
DX: O02.1 Missed abortion (principal); K21.9 Gastro-esophageal reflux disease without esophagitis; E03.9 Hypothyroidism, unspecified; F41.9 Anxiety disorder, unspecified; Z79.899 Other long term (current) drug therapy
CPT/HCPCS: 36415; 59820; 85027; 86850; 86900; 86901; 88305; J1100; J1885; J2250; J2405; J3010

== ENCOUNTER → 2022-07-14 | Outpatient (REF) | payer OTHER ==
[2022-07-14 16:55] LABS: APPEARANCE, URINE CLEAR (CLEAR); BACTERIA, URINE AUTO 1+ (NEGATIVE); BILIRUBIN, URINE AUTO NEGATIVE (NEGATIVE); BLOOD, URINE BLOOD 2+ (NEGATIVE); COLOR, URINE AMBER (YELLOW); GLUCOSE, URINE (UA) AUTO NEGATIVE (NEGATIVE); KETONE, URINE AUTO NEGATIVE (NEGATIVE); LEUKOCYTE ESTERASE, URINE AUTO 1+ (NEGATIVE); NITRITE, URINE AUTO POSITIVE (NEGATIVE); PROTEIN, URINE AUTO NEGATIVE (NEGATIVE); RBC, URINE AUTO 1 /HPF (0-3); SPECIFIC GRAVITY URINE AUTO 1.004 (1.002-1.035); SQUAMOUS EPITHELIAL CELL UR AU 7 /HPF (0-6); WBC, URINE AUTO 7 /HPF (0-3)
== END ==
LOC: M LAB REF 16:25
PROVIDERS: ATTEND Physician Assistant Medical
DX: N39.0 Urinary tract infection, site not specified (principal)

== ENCOUNTER → 2022-09-25 | Outpatient (CLI) | payer OTHER | LOC: M LAB 10:34 | PROVIDERS: ATTEND Obstetrics & Gynecology Reproductive Endocrinology | DX: Z31.41 Encounter for fertility testing (principal) ==

== ENCOUNTER → 2023-05-03 | Outpatient (CLI) | payer OTHER ==
[2023-05-03 14:42] LABS: HEMATOCRIT 38.1 % (36.0-47.0); HEMOGLOBIN 12.5 g/dl (12.0-15.5); MEAN CORPUSCULAR HEMOGLOBIN 28.8 pg (27.0-33.0); MEAN CORPUSCULAR HGB CONC 32.8 g/dl (32.0-36.5); MEAN CORPUSCULAR VOLUME 87.8 fl (80.0-96.0); PLATELET COUNT, AUTOMATED 319 10^3/uL (150-450); RED BLOOD COUNT 4.34 10^6/uL (4.00-5.40)
[2023-05-03 14:50] LABS: ALBUMIN 4.1 G/DL (3.2-5.2); ALKALINE PHOSPHATASE 39 U/L (46-116); ALT/SGPT 18 U/L (7.0-40); AST/SGOT 13 U/L (<34); BILIRUBIN,TOTAL 0.6 MG/DL (0.3-1.2); BLOOD UREA NITROGEN 12 MG/DL (9-23); CARBON DIOXIDE LEVEL 29 MMOL/L (20-31); CHLORIDE LEVEL 106 MMOL/L (98-107); CREATININE FOR GFR 0.68 MG/DL (0.55-1.30); FREE T4 0.94 NG/DL (0.89-1.76); GLOMERULAR FILTRATION RATE > 60.0 (>60); GLUCOSE, FASTING 95 MG/DL (60-100); POTASSIUM SERUM 4.1 MMOL/L (3.5-5.1); SODIUM LEVEL 139 MMOL/L (136-145); THYROID STIMULATING HORMONE 4.192 uIU/ML (0.55-4.78); TOTAL PROTEIN 6.9 G/DL (5.7-8.2)
[2023-05-03 14:52] LABS: TOTAL 25(OH) VITAMIN D 34.6 NG/ML (20.0-100.0); VITAMIN B12 LEVEL 394 PG/ML (211-911)
[2023-05-03 14:53] LABS: FOLATE > 24.00 NG/ML (>5.4)
== END ==
LOC: M ADAMS 08:08
PROVIDERS: ATTEND Physician Assistant
DX: M79.652 Pain in left thigh (principal); E55.9 Vitamin D deficiency, unspecified; R53.83 Other fatigue; Z00.00 Encounter for general adult medical examination without abnormal findings

== ENCOUNTER → 2023-05-06 | Outpatient (REF) | payer OTHER | LOC: M SFHCWAGY 09:57 | PROVIDERS: ATTEND Obstetrics & Gynecology | DX: Z01.419 Encounter for gynecological examination (general) (routine) without abnormal findings (principal) | CPT/HCPCS: 87624; G0123 ==

== ENCOUNTER → 2023-05-11 | Outpatient (REF) | payer OTHER ==
[2023-05-11 15:24] LABS: THYROID STIMULATING HORMONE 3.72 uIU/ML (0.55-4.78)
[2023-05-11 15:26] LABS: FREE T4 0.9 NG/DL (0.89-1.76); PROGESTERONE 8.39 NG/ML
== END ==
LOC: M LABDRWAD 13:54
PROVIDERS: ATTEND Obstetrics & Gynecology
DX: N97.0 Female infertility associated with anovulation (principal)

== ENCOUNTER → 2023-10-04 | Outpatient (CLI) | payer OTHER ==
[~2023-10-04] MED LIST changes: -DOXY150C3 PO; +DOXY150C5 PO
[2023-10-04 18:36] LABS: HEMOGLOBIN 12.7 g/dl (12.0-15.5); MEAN CORPUSCULAR HEMOGLOBIN 28.9 pg (27.0-33.0); MEAN CORPUSCULAR HGB CONC 33.4 g/dl (32.0-36.5); MEAN CORPUSCULAR VOLUME 86.4 fl (80.0-96.0); PLATELET COUNT, AUTOMATED 321 10^3/uL (150-450); WHITE BLOOD COUNT 6.8 10^3/uL (4.0-10.0)
[2023-10-04 19:01] LABS: FREE T4 1.06 NG/DL (0.89-1.76); PROLACTIN 8.14 NG/ML; THYROID STIMULATING HORMONE 3.9 uIU/ML (0.55-4.78)
== END ==
LOC: M PLALAB 15:54
PROVIDERS: ATTEND Obstetrics & Gynecology
DX: N93.9 Abnormal uterine and vaginal bleeding, unspecified (principal)

== ENCOUNTER → 2024-02-15 | Outpatient (REF) | payer OTHER ==
[2024-02-15 14:14] LABS: FREE T4 1.22 NG/DL (0.89-1.76); THYROID STIMULATING HORMONE 2.879 uIU/ML (0.55-4.78)
== END ==
LOC: M LABDRWAD 12:56
PROVIDERS: ATTEND Internal Medicine Endocrinology, Diabetes & Metabolism
DX: E06.3 Autoimmune thyroiditis (principal); E03.9 Hypothyroidism, unspecified

== ENCOUNTER → 2024-04-03 | Outpatient (REF) | payer OTHER ==
[2024-04-03 15:25] LABS: TOTAL T3 85.7 NG/DL (60.0-181.0)
[2024-04-03 15:26] LABS: THYROID STIMULATING HORMONE 1.564 uIU/ML (0.55-4.78); TOTAL 25(OH) VITAMIN D 42.1 NG/ML (20.0-100.0)
[2024-04-03 15:28] LABS: FREE T4 1.33 NG/DL (0.89-1.76)
[2024-04-03 15:33] LABS: BASO % 0.9 % (0.0-1.0); EOS # 0.1 10^3/uL (0.0-0.5); EOS % 2.1 % (0.0-3.0); HEMATOCRIT 35.5 % (36.0-47.0); HEMOGLOBIN 11.6 g/dl (12.0-15.5); LYMPH # 1.2 10^3/uL (1.5-5.0); LYMPH % 28.1 % (24.0-44.0); MEAN CORPUSCULAR HEMOGLOBIN 30.1 pg (27.0-33.0); MEAN CORPUSCULAR HGB CONC 32.7 g/dl (32.0-36.5); MEAN CORPUSCULAR VOLUME 92.2 fl (80.0-96.0); MONO % 23.7 % (2.0-8.0); NEUTROPHILS # 1.9 10^3/uL (1.5-8.5); PLATELET COUNT, AUTOMATED 295 10^3/uL (150-450); RED BLOOD COUNT 3.85 10^6/uL (4.00-5.40); WHITE BLOOD COUNT 4.3 10^3/uL (4.0-10.0)
== END ==
LOC: M LABDRWAD 13:19
PROVIDERS: ATTEND Nurse Practitioner Family
DX: A69.20 Lyme disease, unspecified (principal); M25.50 Pain in unspecified joint; R53.83 Other fatigue; F41.9 Anxiety disorder, unspecified; N97.9 Female infertility, unspecified

== ENCOUNTER → 2024-04-25 | Outpatient (REF) | payer OTHER ==
[2024-04-25 14:58] LABS: THYROID STIMULATING HORMONE 2.215 uIU/ML (0.55-4.78)
[2024-04-25 15:00] LABS: FREE T4 1.49 NG/DL (0.89-1.76)
== END ==
LOC: M LABDRWAD 13:44
PROVIDERS: ATTEND Internal Medicine Endocrinology, Diabetes & Metabolism
DX: E03.9 Hypothyroidism, unspecified (principal)

== ENCOUNTER → 2024-05-15 | Outpatient (REF) | payer OTHER ==
[2024-05-15 17:30] LABS: BASO # 0.1 10^3/uL (0.0-0.2); EOS # 0.1 10^3/uL (0.0-0.5); EOS % 1.4 % (0.0-3.0); HEMATOCRIT 34.2 % (36.0-47.0); HEMOGLOBIN 11.2 g/dl (12.0-15.5); LYMPH % 42.7 % (24.0-44.0); MEAN CORPUSCULAR HEMOGLOBIN 30.1 pg (27.0-33.0); MEAN CORPUSCULAR HGB CONC 32.7 g/dl (32.0-36.5); MEAN CORPUSCULAR VOLUME 91.9 fl (80.0-96.0); MONO # 0.5 10^3/uL (0.0-0.8); MONO % 7.1 % (2.0-8.0); NEUTROPHILS # 3.4 10^3/uL (1.5-8.5); NEUTROPHILS % 47.2 % (36.0-66.0); PLATELET COUNT, AUTOMATED 390 10^3/uL (150-450); RED BLOOD COUNT 3.72 10^6/uL (4.00-5.40); WHITE BLOOD COUNT 7.1 10^3/uL (4.0-10.0)
[2024-05-15 18:04] LABS: ALKALINE PHOSPHATASE 38 U/L (35-104); ALT/SGPT 14 U/L (7.0-40); AST/SGOT 11 U/L (<34); BILIRUBIN,TOTAL 0.5 MG/DL (0.3-1.2); BLOOD UREA NITROGEN 7 MG/DL (9-23); CALCIUM LEVEL 9.3 MG/DL (8.5-10.1); CARBON DIOXIDE LEVEL 26 MMOL/L (20-31); CHLORIDE LEVEL 104 MMOL/L (98-107); CREATININE FOR GFR 0.59 MG/DL (0.55-1.30); GLOMERULAR FILTRATION RATE > 60.0 (>60); GLUCOSE, FASTING 82 MG/DL (60-100); POTASSIUM SERUM 4.2 MMOL/L (3.5-5.1); SODIUM LEVEL 140 MMOL/L (136-145); TOTAL PROTEIN 7.2 G/DL (5.7-8.2)
== END ==
LOC: M LABDRWAD 16:51
PROVIDERS: ATTEND Nurse Practitioner Family
DX: A69.20 Lyme disease, unspecified (principal); A77.0 Spotted fever due to Rickettsia rickettsii; M25.50 Pain in unspecified joint; N92.5 Other specified irregular menstruation; F41.9 Anxiety disorder, unspecified; Z79.2 Long term (current) use of antibiotics; B60.09 Other babesiosis

== ENCOUNTER → 2024-06-06 | Outpatient (REF) | payer OTHER | LOC: M PLALAB 14:12 | PROVIDERS: ATTEND Obstetrics & Gynecology | DX: Z12.4 Encounter for screening for malignant neoplasm of cervix (principal) | CPT/HCPCS: 87624; G0123 ==

== ENCOUNTER → 2025-01-15 | Outpatient (CLI) | payer OTHER | LOC: M LAB 17:15 | PROVIDERS: ATTEND Obstetrics & Gynecology Reproductive Endocrinology | DX: Z32.00 Encounter for pregnancy test, result unknown (principal) ==

== ENCOUNTER → 2025-01-15 | Outpatient (CLI) | payer OTHER ==
[2025-01-15 19:09] LABS: BASO # 0.0 10^3/uL (0.0-0.2); BASO % 0.6 % (0.0-1.0); EOS # 0.1 10^3/uL (0.0-0.5); EOS % 1.6 % (0.0-3.0); LYMPH # 2.5 10^3/uL (1.5-5.0); LYMPH % 39.3 % (24.0-44.0); MONO # 0.5 10^3/uL (0.0-0.8); MONO % 7.8 % (2.0-8.0); NEUTROPHILS # 3.2 10^3/uL (1.5-8.5); NEUTROPHILS % 50.4 % (36.0-66.0); PLATELET COUNT, AUTOMATED 325 10^3/uL (150-450)
[2025-01-15 19:36] LABS: ALT/SGPT 11 U/L (7.0-40); AST/SGOT 12 U/L (<34); CALCIUM LEVEL 9.2 MG/DL (8.5-10.1); CARBON DIOXIDE LEVEL 28 MMOL/L (20-31); CHLORIDE LEVEL 105 MMOL/L (98-107); CREATININE FOR GFR 0.67 MG/DL (0.55-1.30); GLOMERULAR FILTRATION RATE > 90.0 (>60); POTASSIUM SERUM 3.7 MMOL/L (3.5-5.1); SODIUM LEVEL 143 MMOL/L (136-145)
== END ==
LOC: M LAB 17:12
PROVIDERS: ATTEND Nurse Practitioner Family
DX: A77.0 Spotted fever due to Rickettsia rickettsii (principal)